=== PATIENT | male | born 2000 | race Hispanic/Latino ===

== ENCOUNTER 2020-08-19 22:41 | Emergency (ER) | payer OTHER ==
--- OUTSIDE RECORDS SUMMARY | 2020-08-19 22:43 | XMS REPORT | Continuity of Care Document ---
:2000 Author Organization [facility] t Address [address] [place] [address] Dr. Villegas [address] [place] [id number] Care Team Providers Name Role Phone Unavailable Unavailable Unavailable Problems This patient has no known problems. Allergies, Adverse Reactions, Alerts This patient has no known allergies or adverse reactions. Medications This patient has no known medications. Procedures This patient has no known procedures. Results This patient has no known results.
[2020-08-19] MEDS ORDERED: LIDOCAINE 1% 20 ML MDV ONE (23:56)
--- NOTE | 2020-08-20 00:24 | EDPHYS ---
Physician Documentation [facility] Name: Luis Fernando Silva Age: 20 yrs Sex: Male : 2000 Arrival Date: 08/19/2020 Time: 22:47 Bed 18 Private MD: ED Physician Jose Marcano HPI: 08/20 00:19 This 20 yrs old Male presents to ER via Ambulatory with complaints of jmm Laceration To Arm. 00:19 The patient has a laceration related to:. Onset: The symptoms/episode began/occurred jmm acutely, just prior to arrival. Associated signs and symptoms: Pertinent positives: laceration. This is a 20 year old male with a history of anxiety that presents to the ED with complaints of laceration to his right arm. patient states he fell through a window cutting his right arm. Patient states he is UTD on immunizations. . Historical: - Allergies: 08/19 23:25 NKA; jb4 - Home Meds: 23:25 none [Active]; jb4 - PMHx: 23:25 Anxiety; Depression; jb4 - PSHx: 23:25 None; jb4 - Immunization history:: Adult Immunizations unknown, Last tetanus immunization: unknown. - Social history:: Smoking status: Patient denies any tobacco usage or history of. Patient/guardian denies using alcohol, street drugs. ROS: 08/20 00:19 Constitutional: Negative for fever, chills, and weight loss, Cardiovascular: Negative jmm for chest pain, palpitations, and edema, Respiratory: Negative for shortness of breath, cough, wheezing, and pleuritic chest pain. Skin: Positive for laceration(s). All other systems are negative. Exam: 00:19 Constitutional: This is a well developed, well nourished patient who is awake, alert, jmm and in no acute distress. Head/Face: atraumatic. Eyes: EOMI, no conjunctival erythema appreciated ENT: Moist Mucus Membranes Neck: Trachea midline, Supple Chest/axilla: Normal chest wall appearance and motion. Cardiovascular: Regular rate and rhythm. No edema appreciated Respiratory: Normal respirations, no respiratory distress appreciated Abdomen/GI: Non distended, soft Back: Normal ROM 00:19 Skin: 6 cm laceration noted to the right proximal forearm. 00:19 Neuro: Orientation: is normal, Mentation: is normal, Memory: is normal. 00:19 Psych: Behavior/mood is pleasant, cooperative. Vital Signs: 08/19 23:15 BP 119 / 85; Pulse 74; Resp 16; Temp 98.4(O); Pulse Ox 98% on R/A; Weight 127.01 kg jb4 (R); Height 5 ft. 9 in. (175.26 cm) (R); Pain 0/10; 08/20 00:40 BP 94 / 62; Pulse 76; Resp 16; Pulse Ox 98% on R/A; jb4 08/19 23:15 Body Mass Index 41.35 (127.01 kg, 175.26 cm) jb4 Laceration: 00:21 Wound Repair of 6cm ( 2.4in ) subcutaneous laceration to right arm. Distal jmm neuro/vascular/tendon intact. Anesthesia: Local anesthetic administered with 10 mls of 1% lidocaine. Wound prep: Moderate cleansing with betadine by me. Skin closed with 10 4-0 Prolene using running sutures. Patient tolerated well. MDM: 08/19 23:30 Patient medically screened. [facility] 08/20 00:22 Data reviewed: vital signs, nurses notes. Counseling: I had a detailed discussion with bello the patient and/or guardian regarding: the historical points, exam findings, and any diagnostic results supporting the discharge/admit diagnosis, the need for outpatient follow up, to return to the emergency department if symptoms worsen or persist or if there are any questions or concerns that arise at home. ED course: Patient given wound infection return precautions. Patient understood and agrees with the plan of care. . 08/20 00:39 Order name: Dressing - Wound; Complete Time: 00:39 jb4 08/20 00:39 Order name: Gloves, Sterile; Complete Time: 00:39 jb4 08/20 00:39 Order name: Setup Suture Tray; Complete Time: 00:39 jb4 Administered Medications: 00:00 Drug: Lidocaine (1 %) 20 ml {Note: Administered by ER provider.} Volume: 20 ml; Route: jb4 Infiltration; 00:41 Follow up: Response: No adverse reaction jb4 Disposition: 06:59 Co-signature as Attending Physician, Jose Marcano MD I agree with the assessment and 4 plan of care. Disposition: 08/20/20 00:23 Discharged to Home. Impression: Forearm Laceration. - Condition is Stable. - Discharge Instructions: Laceration Care, Adult. - Medication Reconciliation Form, Thank You Letter, Antibiotic Education, Prescription Opioid Use form. - Follow up: Private Physician; When: 7 - 10 days; Reason: Recheck today's complaints, Continuance of care, Staple/Suture removal, Re-evaluation by your physician. Signatures: Torsten Linton PA PA jmm Bryson, James, RN RN jb4 Jose Marcano MD MD tw4 Corrections: (The following items were deleted from the chart) 00:41 00:23 08/20/2020 00:23 Discharged to Home. Impression: Forearm Laceration. Condition is jb4 Stable. Forms are Medication Reconciliation Form, Thank You Letter, Antibiotic Education, Prescription Opioid Use. Follow up: Private Physician; When: 7 - 10 days; Reason: Recheck today's complaints, Continuance of care, Staple/Suture removal, Re-evaluation by your physician. redd
--- NOTE | 2020-08-20 00:24 | ER ---
Nurse's Notes [facility] Name: Luis Fernando Silva Age: 20 yrs Sex: Male : 2000 Arrival Date: 08/19/2020 Time: 22:47 Bed 18 Private MD: Diagnosis: Forearm Laceration Presentation: 08/19 23:15 Chief complaint: Patient states: I was taking down my halloween decorations and I fell jb4 through the window and cut my upper right forearm. 23:15 Coronavirus screen: Client denies travel out of the [place] in the last 14 days. At this jb4 time, the client does not indicate any symptoms associated with coronavirus-19. Ebola Screen: No symptoms or risks identified at this time. Complicating Factors: There are no complicating factors for this patient. Initial Sepsis Screen: Does the patient meet any 2 criteria? No. Patient's initial sepsis screen is negative. Does the patient have a suspected source of infection? No. Patient's initial sepsis screen is negative. Risk Assessment: Do you want to hurt yourself or someone else? Patient reports no desire to harm self or others. Onset of symptoms was August 19, 2020. Transition of care: patient was not received from another setting of care. 23:15 Method Of Arrival: Ambulatory jb4 23:15 Acuity: LALIT 4 jb4 Historical: - Allergies: 23:25 NKA; jb4 - Home Meds: 23:25 none [Active]; jb4 - PMHx: 23:25 Anxiety; Depression; jb4 - PSHx: 23:25 None; jb4 - Immunization history:: Adult Immunizations unknown, Last tetanus immunization: unknown. - Social history:: Smoking status: Patient denies any tobacco usage or history of. Patient/guardian denies using alcohol, street drugs. Screenin:25 Abuse screen: Denies threats or abuse. Nutritional screening: No deficits noted. jb4 Tuberculosis screening: No symptoms or risk factors identified. Fall Risk None identified. Assessment: 23:25 General: Appears in no apparent distress. comfortable, Behavior is calm, cooperative, jb4 appropriate for age. Pain: Denies pain. Neuro: Level of Consciousness is awake, alert, obeys commands, Oriented to person, place, time, situation. Cardiovascular: Patient's skin is warm and dry. Respiratory: Airway is patent Respiratory effort is even, unlabored, Respiratory pattern is regular, symmetrical. GI: No signs and/or symptoms were reported involving the gastrointestinal system. : No signs and/or symptoms were reported regarding the genitourinary system. EENT: No signs and/or symptoms were reported regarding the EENT system. Derm: Skin is intact, Skin is pink, warm \T\ dry. Musculoskeletal: Circulation, motion, and sensation intact. Range of motion: intact in all extremities. 23:25 Injury Description: Laceration sustained to dorsal aspect of right forearm is clean, jb4 superficial, 2.6 to 7.5 cm long, small amount of bleeding noted. is bleeding a small amount. 08/20 00:40 Reassessment: Patient appears in no apparent distress at this time. Patient and/or jb4 family updated on plan of care and expected duration. Pain level reassessed. Patient is alert, oriented x 3, equal unlabored respirations, skin warm/dry/pink. Vital Signs: 08/19 23:15 BP 119 / 85; Pulse 74; Resp 16; Temp 98.4(O); Pulse Ox 98% on R/A; Weight 127.01 kg jb4 (R); Height 5 ft. 9 in. (175.26 cm) (R); Pain 0/10; 08/20 00:40 BP 94 / 62; Pulse 76; Resp 16; Pulse Ox 98% on R/A; jb4 08/19 23:15 Body Mass Index 41.35 (127.01 kg, 175.26 cm) jb4 ED Course: 08/19 22:47 Patient arrived in ED. ag3 23:11 Torsten Linton PA is PHCP. jmm 23:11 Jose Marcano MD is Attending Physician. jmm 23:22 Ori Cespedes, ARUN is Primary Nurse. jb4 23:24 Triage completed. jb4 23:25 Arm band placed on right wrist. jb4 23:25 Patient has correct armband on for positive identification. Bed in low position. Call jb4 light in reach. Side rails up X 1. Pulse ox on. NIBP on. 08/20 00:20 Assist provider with laceration repair on dorsal aspect of right forearm that was jb4 between 2.6 to 7.5 cm using sutures. Set up tray. Performed by Torsten GROSSMAN Dressed with PT refused bandage Patient tolerated well. Patient did not have IV access during this emergency room visit. Administered Medications: 00:00 Drug: Lidocaine (1 %) 20 ml {Note: Administered by ER provider.} Volume: 20 ml; Route: jb4 Infiltration; 00:41 Follow up: Response: No adverse reaction jb4 Outcome: 00:23 Discharge ordered by MD. rainey 00:41 Discharged to home ambulatory, with friend. jb4 00:41 Condition: improved 00:41 Discharge instructions given to patient, Instructed on discharge instructions, follow up and referral plans. Demonstrated understanding of instructions, follow-up care. 00:41 Patient left the ED. jb4 Signatures: Torsten Linton PA PA jmm Bryson, James, RN RN jb4 Rosario Feliciano ag3
[2020-08-20 00:59] VITALS: TEMP 98.4; O2SAT 98
[2020-08-20 01:01] VITALS: BP 94/62
== END 2020-08-20 00:41 | disposition home or self-care (01) ==
LOC: ER 22:41
PROC: 0JQG0ZZ Repair Right Lower Arm Subcutaneous Tissue and Fascia, Open Approach (ICD-10-PCS; principal; 2020-08-20)
DX: S51.811A Laceration without foreign body of right forearm, initial encounter (principal); W01.110A Fall on same level from slipping, tripping and stumbling with subsequent striking against sharp glass, initial encounter; Y93.89 Activity, other specified; Y92.9 Unspecified place or not applicable
CPT/HCPCS: 99283

== ENCOUNTER 2020-08-21 18:45 | Emergency (ER) | payer OTHER ==
--- OUTSIDE RECORDS SUMMARY | 2020-08-21 18:47 | XMS REPORT | Continuity of Care Document ---
:2000 Author Organization [facility] t Address [address] [place] [address] Dr. Villegas [address] [place] [id number] Care Team Providers Name Role Phone Unavailable Unavailable Unavailable Problems This patient has no known problems. Allergies, Adverse Reactions, Alerts This patient has no known allergies or adverse reactions. Medications This patient has no known medications. Procedures This patient has no known procedures. Results This patient has no known results.
[2020-08-21] MEDS ORDERED: LIDOCAINE 1% W/EPI 1:100,000 MDV 20 ML VIAL ONE (20:27)
--- NOTE | 2020-08-21 20:51 | EDPHYS ---
Physician Documentation [facility] Name: Luis Fernando Silva Age: 20 yrs Sex: Male : 2000 Arrival Date: 08/21/2020 Time: 18:47 Bed 28 Private MD: ED Physician Jason Henao HPI: 08/21 20:10 This 20 yrs old Male presents to ER via Ambulatory with complaints of Suture cp Recheck. 20:10 Patient presents to ED for recheck of: laceration. cp 20:10 The affected area is on the volar surface right forearm. Previous treatment: The cp patient was initially treated 2 day(s) ago, the care was rendered at [facility], Treatment type: The patient's original treatment included sutures. Patient reports wound now open and suture untied. Historical: - Allergies: 19:31 NKA; ca1 - Home Meds: 19:31 None [Active]; ca1 - PMHx: 19:31 Anxiety; Depression; ca1 - PSHx: 19:31 None; ca1 - Immunization history:: Adult Immunizations up to date, Flu vaccine is not up to date. - Social history:: Smoking status: Patient denies any tobacco usage or history of. ROS: 20:15 Skin: Positive for laceration(s), of the volar surface right forearm. cp 20:15 Constitutional: Negative for fever. cp 20:15 All other systems are negative. Exam: 20:20 Constitutional: The patient appears in no acute distress, alert, awake, well developed, cp well nourished, obese. 20:20 Skin: Wound recheck: Suture laceration closure: no drainage, no erythema, no swelling, noted 1 continuous suture that is untied on lateral side causing laceration to reopen. Vital Signs: 19:28 BP 106 / 50; Pulse 77; Resp 18 S; Temp 97.4(TE); Pulse Ox 98% on R/A; Weight 127.01 kg ca1 (R); Height 5 ft. 9 in. (175.26 cm) (R); Pain 0/10; 19:28 Body Mass Index 41.35 (127.01 kg, 175.26 cm) ca1 Laceration: 20:50 Wound Repair of 6cm ( 2.4in ) subcutaneous laceration to volar surface of right cp forearm. Linear shaped.. Distal neuro/vascular/tendon intact. Anesthesia: Wound infiltrated with 3 mls of 1% lidocaine w/ Epi. Wound prep: Simple cleansing by me, Wound irrigation by me. Skin closed with 2 1-0 Prolene using simple interupted sutures, loose closure. Dressed with Bacitracin, 4x4's, Kerlix. Patient tolerated well. MDM: 20:04 Patient medically screened. cp 20:50 Data reviewed: vital signs, nurses notes, I have discussed the patient's cp presentation/case with the attending Emergency Department Physician; and as a result, I will discharge patient. 20:50 Counseling: I had a detailed discussion with the patient and/or guardian regarding: the cp historical points, exam findings, and any diagnostic results supporting the discharge/admit diagnosis, the need for outpatient follow up, a family practitioner, to return to the emergency department if symptoms worsen or persist or if there are any questions or concerns that arise at home. Response to treatment: the patient's symptoms have markedly improved after treatment, and as a result, I will discharge patient. 08/21 20:08 Order name: Dressing - Wound; Complete Time: 21:00 08/21 20:08 Order name: Gloves, Sterile; Complete Time: 20:16 cp 08/21 20:08 Order name: Setup Suture Tray; Complete Time: 20:16 cp Administered Medications: 20:45 Drug: Lidocaine-Epinephrine -1%: (1:100,000) 5 ml {Note: administered to wound by Nando tl1 Page PA.} Volume: 20 ml; Route: Infiltration; 21:01 Follow up: Response: No adverse reaction; No change in condition tl1 Disposition: 21:00 Chart complete. 08/22 01:50 Co-signature as Attending Physician, Jason Henao MD. rn Disposition: 08/21/20 20:50 Discharged to Home. Impression: Encounter for attention to dressings, sutures and drains. - Condition is Stable. - Discharge Instructions: Sutured Wound Care. - Prescriptions for Keflex 500 mg Oral Capsule - take 1 capsule by ORAL route every 8 hours for 10 days; 30 capsule. - Medication Reconciliation Form, Thank You Letter, Antibiotic Education, Prescription Opioid Use form. - Follow up: Private Physician; When: 1 week; Reason: Staple/Suture removal. - Problem is new. - Symptoms have improved. Signatures: Jason Henao MD MD rn Fouzia Bower RN RN tl1 Nando Orta PA PA cp Pat Bolden RN RN ca1 Corrections: (The following items were deleted from the chart) 08/21 20:52 20:49 Dressing - Wound ordered. cp bb 21:05 20:50 08/21/2020 20:50 Discharged to Home. Impression: Encounter for attention to tl1 dressings, sutures and drains. Condition is Stable. Forms are Medication Reconciliation Form, Thank You Letter, Antibiotic Education, Prescription Opioid Use. Follow up: Private Physician; When: 1 week; Reason: Staple/Suture removal. Problem is new. Symptoms have improved. cp
--- NOTE | 2020-08-21 20:51 | ER ---
Nurse's Notes [facility] Name: Luis Fernando Silva Age: 20 yrs Sex: Male : 2000 Arrival Date: 08/21/2020 Time: 18:47 Bed 28 Private MD: Diagnosis: Encounter for attention to dressings, sutures and drains Presentation: 08/21 19:28 Chief complaint: Patient states: Was here for a laceration on R forearm yesterday. Was ca1 sutured. Woke up this morning, most of the sutures are gone. Wound dehisced, sutures not seen, bleeding noted. Pressure dressing applied. Coronavirus screen: Client denies travel out of the [place] in the last 14 days. At this time, the client does not indicate any symptoms associated with coronavirus-19. Ebola Screen: Patient negative for fever greater than or equal to 101.5 degrees Fahrenheit, and additional compatible Ebola Virus Disease symptoms Patient denies exposure to infectious person. Patient denies travel to an Ebola-affected area in the 21 days before illness onset. No symptoms or risks identified at this time. Initial Sepsis Screen: Does the patient meet any 2 criteria? No. Patient's initial sepsis screen is negative. Does the patient have a suspected source of infection? No. Patient's initial sepsis screen is negative. Risk Assessment: Do you want to hurt yourself or someone else? Patient reports no desire to harm self or others. Onset of symptoms was August 21, 2020. 19:28 Method Of Arrival: Ambulatory ca1 19:28 Acuity: LALIT 4 ca1 Triage Assessment: 21:05 General: Appears in no apparent distress. Behavior is calm, cooperative, appropriate tl1 for age. Pain: Denies pain. Historical: - Allergies: 19:31 NKA; ca1 - Home Meds: 19:31 None [Active]; ca1 - PMHx: 19:31 Anxiety; Depression; ca1 - PSHx: 19:31 None; ca1 - Immunization history:: Adult Immunizations up to date, Flu vaccine is not up to date. - Social history:: Smoking status: Patient denies any tobacco usage or history of. Screenin:05 Abuse screen: Denies threats or abuse. Denies injuries from another. Nutritional tl1 screening: No deficits noted. Tuberculosis screening: No symptoms or risk factors identified. Fall Risk None identified. Vital Signs: 19:28 BP 106 / 50; Pulse 77; Resp 18 S; Temp 97.4(TE); Pulse Ox 98% on R/A; Weight 127.01 kg ca1 (R); Height 5 ft. 9 in. (175.26 cm) (R); Pain 0/10; 19:28 Body Mass Index 41.35 (127.01 kg, 175.26 cm) ca1 ED Course: 18:47 Patient arrived in ED. ds1 19:30 Triage completed. ca1 19:31 Arm band placed on right wrist. ca1 19:51 Nando Orta PA is PHCP. cp 19:51 Jason Henao MD is Attending Physician. cp 20:45 Assist provider with laceration repair on dorsal aspect of right forearm that was tl1 between 2.6 to 7.5 cm using sutures. Set up tray. Performed by Nando GROSSMAN Dressed with 4X4s, Kerlix, Neosporin, Patient tolerated well. 21:02 No provider procedures requiring assistance completed. Patient did not have IV access tl1 during this emergency room visit. Dressings: Kerlix X 1; dorsal aspect of right forearm 4X4s. 21:03 Patient has correct armband on for positive identification. Bed in low position. Call tl1 light in reach. Administered Medications: 20:45 Drug: Lidocaine-Epinephrine -1%: (1:100,000) 5 ml {Note: administered to wound by Nando GROSSMAN.} Volume: 20 ml; Route: Infiltration; 21:01 Follow up: Response: No adverse reaction; No change in condition tl1 Outcome: 20:50 Discharge ordered by . cp 21:04 Discharged to home ambulatory. tl1 21:04 Condition: good 21:04 Discharge instructions given to patient, Instructed on discharge instructions, follow up and referral plans. medication usage, wound care, Demonstrated understanding of instructions, follow-up care, medications, wound care, Prescriptions given X 1. 21:05 Patient left the ED. tl1 Signatures: Joanne Arroyo ds1 Fouzia Bower, RN RN tl1 Nando Orta PA PA cp Acob, Cheryl, RN RN ca1
[2020-08-22 02:23] VITALS: BP 106/50; TEMP 97.4; O2SAT 98
== END 2020-08-21 21:05 | disposition home or self-care (01) ==
LOC: ER 18:45
PROC: 0JQG0ZZ Repair Right Lower Arm Subcutaneous Tissue and Fascia, Open Approach (ICD-10-PCS; principal; 2020-08-21)
DX: S51.811D Laceration without foreign body of right forearm, subsequent encounter (principal)
CPT/HCPCS: 99283

== ENCOUNTER 2020-08-30 22:50 | Emergency (ER) | payer OTHER ==
--- OUTSIDE RECORDS SUMMARY | 2020-08-30 22:51 | XMS REPORT | Continuity of Care Document ---
:2000 Author Organization [facility] t Address [address] [place] [address] Dr. Villegas [address] [place] [id number] Care Team Providers Name Role Phone Unavailable Unavailable Unavailable Problems This patient has no known problems. Allergies, Adverse Reactions, Alerts This patient has no known allergies or adverse reactions. Medications This patient has no known medications. Procedures This patient has no known procedures. Results This patient has no known results.
--- NOTE | 2020-08-30 23:23 | EDPHYS ---
Physician Documentation [facility] Name: Luis Fernando Silva Age: 20 yrs Sex: Male : 2000 Arrival Date: 08/30/2020 Time: 22:54 Bed 28 Private MD: ED Physician Chele Rodriguez HPI: 08/30 23:16 This 20 yrs old Male presents to ER via Ambulatory with complaints of Suture pkl Removal. 23:16 The patient has sutures on the right forearm. Previous treatment: the care was rendered pkl at [facility]. Sutures/autumn progress: The patient has no c/o's. The wound is well-healing with no redness, swelling, discharge, or dehiscence reported. Historical: - Allergies: 23:02 NKA; aj1 - Home Meds: 23:02 None [Active]; aj1 - PMHx: 23:02 Anxiety; Depression; aj1 - Immunization history:: Adult Immunizations up to date. - Social history:: Smoking status: Patient/guardian denies using tobacco. ROS: 23:16 Eyes: Negative for injury, pain, redness, and discharge, ENT: Negative for injury, pkl pain, and discharge, Neck: Negative for injury, pain, and swelling, Cardiovascular: Negative for chest pain, palpitations, and edema, Respiratory: Negative for shortness of breath, cough, wheezing, and pleuritic chest pain, Abdomen/GI: Negative for abdominal pain, nausea, vomiting, diarrhea, and constipation, Back: Negative for injury and pain, : Negative for injury, bleeding, discharge, and swelling, Neuro: Negative for headache, weakness, numbness, tingling, and seizure. 23:16 MS/extremity: Positive for Laceration right forearm healed. Exam: 23:16 Head/Face: Normocephalic, atraumatic. Eyes: Pupils equal round and reactive to light, pkl extra-ocular motions intact. Lids and lashes normal. Conjunctiva and sclera are non-icteric and not injected. Cornea within normal limits. Periorbital areas with no swelling, redness, or edema. ENT: Nares patent. No nasal discharge, no septal abnormalities noted. Tympanic membranes are normal and external auditory canals are clear. Oropharynx with no redness, swelling, or masses, exudates, or evidence of obstruction, uvula midline. Mucous membranes moist. Neck: Trachea midline, no thyromegaly or masses palpated, and no cervical lymphadenopathy. Supple, full range of motion without nuchal rigidity, or vertebral point tenderness. No Meningismus. Chest/axilla: Normal chest wall appearance and motion. Nontender with no deformity. No lesions are appreciated. Cardiovascular: Regular rate and rhythm with a normal S1 and S2. No gallops, murmurs, or rubs. Normal PMI, no JVD. No pulse deficits. Respiratory: Lungs have equal breath sounds bilaterally, clear to auscultation and percussion. No rales, rhonchi or wheezes noted. No increased work of breathing, no retractions or nasal flaring. Abdomen/GI: Soft, non-tender, with normal bowel sounds. No distension or tympany. No guarding or rebound. No evidence of tenderness throughout. Back: No spinal tenderness. No costovertebral tenderness. Full range of motion. Neuro: Awake and alert, GCS 15, oriented to person, place, time, and situation. Cranial nerves II-XII grossly intact. Motor strength 5/5 in all extremities. Sensory grossly intact. Cerebellar exam normal. Normal gait. 23:16 Musculoskeletal/extremity: Extremities: grossly normal except: noted in the right forearm : healed laceration. Vital Signs: 23:00 BP 121 / 68; Pulse 96; Resp 18; Pulse Ox 99% on R/A; Weight 127.01 kg (R); Height 5 ft. aj1 9 in. (175.26 cm) (R); Pain 0/10; 23:00 Body Mass Index 41.35 (127.01 kg, 175.26 cm) aj1 Procedures: 23:16 Performed Sutures removed. pkl MDM: 22:55 Patient medically screened. pkl 23:16 Data reviewed: vital signs, nurses notes. pkl Administered Medications: No medications were administered Disposition: 08/30/20 23:22 Discharged to Home. Impression: Removal of sutures ( right forearm ). - Condition is Stable. - Work release form, Medication Reconciliation Form, Thank You Letter, Antibiotic Education, Prescription Opioid Use form. - Follow up: Private Physician; When: As needed. - Problem is new. - Symptoms have improved. Signatures: Brandy Baker RN RN aj1 Chele Rodriguez MD MD pkl Corrections: (The following items were deleted from the chart) 23:28 23:22 08/30/2020 23:22 Discharged to Home. Impression: Removal of sutures ( right aj1 forearm ). Condition is Stable. Forms are Medication Reconciliation Form, Thank You Letter, Antibiotic Education, Prescription Opioid Use. Follow up: Private Physician; When: As needed. Problem is new. Symptoms have improved. pkl
--- NOTE | 2020-08-30 23:23 | ER ---
Nurse's Notes [facility] Name: Luis Fernando Silva Age: 20 yrs Sex: Male : 2000 Arrival Date: 08/30/2020 Time: 22:54 Bed 28 Private MD: Diagnosis: Removal of sutures ( right forearm ) Presentation: 08/30 23:00 Chief complaint: Patient states: He has sutures put in over a week ago on his right arm aj1 and now he is here to have them removed. Coronavirus screen: Client denies travel out of the [place] in the last 14 days. At this time, the client does not indicate any symptoms associated with coronavirus-19. Ebola Screen: Patient denies travel to an Ebola-affected area in the 21 days before illness onset. Initial Sepsis Screen: Does the patient meet any 2 criteria? No. Patient's initial sepsis screen is negative. Does the patient have a suspected source of infection? No. Patient's initial sepsis screen is negative. Risk Assessment: Do you want to hurt yourself or someone else? Patient reports no desire to harm self or others. Onset of symptoms was August 30, 2020. 23:00 Method Of Arrival: Ambulatory aj1 23:00 Acuity: LALIT 5 aj1 Triage Assessment: 23:02 General: Appears in no apparent distress. comfortable, Behavior is calm, cooperative. aj1 Pain: Denies pain. Historical: - Allergies: 23:02 NKA; aj1 - Home Meds: 23:02 None [Active]; aj1 - PMHx: 23:02 Anxiety; Depression; aj1 - Immunization history:: Adult Immunizations up to date. - Social history:: Smoking status: Patient/guardian denies using tobacco. Screenin:04 Abuse screen: Denies threats or abuse. Denies injuries from another. Nutritional aj1 screening: No deficits noted. Tuberculosis screening: No symptoms or risk factors identified. 23:28 Fall Risk None identified. aj1 Assessment: 23:04 General: Appears in no apparent distress. comfortable, Behavior is calm, cooperative, aj1 appropriate for age. Pain: Denies pain. Neuro: Level of Consciousness is awake, alert, obeys commands, Oriented to person, place, time, situation. Cardiovascular: Patient's skin is warm and dry. Respiratory: Airway is patent Respiratory effort is even, unlabored, Respiratory pattern is regular, symmetrical. GI: No signs and/or symptoms were reported involving the gastrointestinal system. : No signs and/or symptoms were reported regarding the genitourinary system. EENT: No signs and/or symptoms were reported regarding the EENT system. Derm: Skin is pink, warm \T\ dry. normal. Musculoskeletal: Circulation, motion, and sensation intact. Vital Signs: 23:00 BP 121 / 68; Pulse 96; Resp 18; Pulse Ox 99% on R/A; Weight 127.01 kg (R); Height 5 ft. aj1 9 in. (175.26 cm) (R); Pain 0/10; 23:00 Body Mass Index 41.35 (127.01 kg, 175.26 cm) aj1 ED Course: 22:54 Patient arrived in ED. am2 22:55 Chele Rodriguez MD is Attending Physician. pkl 22:55 Brandy Baker RN is Primary Nurse. aj1 23:01 Triage completed. aj1 23:02 Arm band placed on. aj1 23:04 Patient has correct armband on for positive identification. Bed in low position. Call aj1 light in reach. 23:04 No provider procedures requiring assistance completed. aj1 23:27 Patient did not have IV access during this emergency room visit. aj1 Administered Medications: No medications were administered Outcome: 23:22 Discharge ordered by . pk 23:28 Discharged to home ambulatory. aj1 23:28 Condition: good 23:28 Discharge instructions given to patient, Instructed on discharge instructions, follow up and referral plans. Demonstrated understanding of instructions, follow-up care. 23:28 Patient left the ED. aj1 Signatures: Brandy Baker RN RN aj Chele Rodriguez MD MD pkAminta Gallego amTiffanie
[2020-08-31 18:07] VITALS: BP 121/68; O2SAT 99
== END 2020-08-30 23:28 | disposition home or self-care (01) ==
LOC: ER 22:50
DX: Z48.02 Encounter for removal of sutures (principal)
CPT/HCPCS: 99281

== ENCOUNTER 2020-11-18 12:24 | Emergency (ER) | payer OTHER ==
--- OUTSIDE RECORDS SUMMARY | 2020-11-18 12:25 | XMS REPORT | Continuity of Care Document ---
:2000 Author Organization [facility] t Address [address] [place] [address] Dr. Villegas [address] [place] [id number] Care Team Providers Name Role Phone Unavailable Unavailable Unavailable Problems This patient has no known problems. Allergies, Adverse Reactions, Alerts This patient has no known allergies or adverse reactions. Medications This patient has no known medications. Procedures This patient has no known procedures. Results This patient has no known results.
[2020-11-18] MEDS ORDERED: LIDOCAINE 2% MPF 5 ML VIAL ONE (13:05)
[2020-11-18] MEDS ORDERED: BUPIVACAINE 0.5% PF 10 ML VIAL ONE (13:06)
[2020-11-18] MEDS ORDERED: TETANUS & DIPHTHERIA TOX,ADULT 0.5 ML VIAL ONE (13:06)
[2020-11-18 13:09] LABS: Absolute Lymphocytes (CBC) 2.7 K/uL (0.7-4.9); Basophils % 0.5 % (0-1.3); Hematocrit 42.5 % (39.6-49.0); Lymphocytes % 27.6 % (15.3-44.8); MPV 9.5 fL (7.6-11.3); RBC Red Blood Cell Count 4.96 M/uL (4.33-5.43)
[2020-11-18 13:28] LABS: Protime INR 1.09
[2020-11-18 13:32] LABS: ALT/SGPT 42 U/L (12-78); AST/SGOT 35 U/L (15-37); Albumin 3.9 g/dL (3.4-5.0); Alkaline Phosphatase 98 U/L (45-117); BUN Blood Urea Nitrogen 6 mg/dL (7-18); Bicarbonate 28 mmol/L (21-32); Bilirubin Direct 0.1 mg/dL (0-0.2); Bilirubin Total 0.3 mg/dL (0.2-1.0); Glucose Level 116 mg/dL (74-106); Potassium 3.4 mmol/L (3.5-5.1); Protein, Total 8.9 g/dL (6.4-8.2); Sodium Level 142 mmol/L (136-145)
[2020-11-18 13:36] LABS: Urine Blood NEGATIVE (NEG); Urine Glucose NEGATIVE (NEG); Urine Protein NEGATIVE (NEG); Urine Specific Gravity >1.030 (1.005-1.030); Urine pH 5.5 (5.0-7.0)
[2020-11-18 13:39] LABS: Barbiturates NEGATIVE (NEGATIVE); Benzodiazepines NEGATIVE (NEGATIVE); Cocaine NEGATIVE (NEGATIVE); METHAMPHETAM NEGATIVE (NEGATIVE); Methadone NEGATIVE (NEGATIVE); Opiates NEGATIVE (NEGATIVE); Phencyclidine NEGATIVE (NEGATIVE); THC Cannibis NEGATIVE (NEGATIVE)
--- NOTE | 2020-11-18 13:57 | RAD REPORT ---
EXAM DESCRIPTION: RAD - Forearm Left - 11/18/2020 1:48 pm CLINICAL HISTORY: laceration Pain and swelling COMPARISON: No comparisons FINDINGS: No bone or joint abnormality is detected.
[2020-11-18] MEDS ORDERED: LIDOCAINE 1% MPF 5 ML VIAL ONE (13:59)
--- NOTE | 2020-11-18 19:56 | ER ---
Nurse's Notes [facility] Name: Luis Fernando Silva Age: 20 yrs Sex: Male : 2000 Arrival Date: 11/18/2020 Time: 12:24 Bed 5 Private MD: Diagnosis: Laceration without foreign body of left forearm;Suicidal gesture Presentation: 11/18 12:48 Chief complaint: Patient states: "At about 4 am I was having a tough time and I was jd3 just having a mental breakdown and I cut myself with a piece of glass. I didn't want to commit suicide, that is just how dealt with the problem at the time. I haven't cut in a long time, I was just having a real tough time.". 12:54 Coronavirus screen: At this time, the client does not indicate any symptoms associated jd3 with coronavirus-19. Ebola Screen: Patient negative for fever greater than or equal to 101.5 degrees Fahrenheit, and additional compatible Ebola Virus Disease symptoms. Complicating Factors: There are no complicating factors for this patient. Initial Sepsis Screen: Does the patient meet any 2 criteria? No. Patient's initial sepsis screen is negative. Does the patient have a suspected source of infection? No. Patient's initial sepsis screen is negative. Risk Assessment: Do you want to hurt yourself or someone else? Patient reports no desire to harm self or others. Onset of symptoms was November 18, 2020. 12:54 Method Of Arrival: Ambulatory jd3 12:54 Acuity: LALIT 2 jd3 Triage Assessment: 12:35 General: Appears in no apparent distress. uncomfortable, Behavior is calm, cooperative, jl7 flat. Pain: Complains of pain in palmar aspect of left forearm Pain currently is 5 out of 10 on a pain scale. Neuro: Level of Consciousness is awake, alert, obeys commands, Oriented to person, place, time, situation. Cardiovascular: Patient's skin is warm and dry. Respiratory: Airway is patent Respiratory effort is even, unlabored, Respiratory pattern is regular, symmetrical. Derm: Skin is pink, warm \\T\\ dry. Injury Description: Laceration sustained to palmar aspect of left forearm is 7.6 to 20 cm long, CMS intact, appears to be about 1 cm deep, adipose tissue noted, no bleeding was sustained 6-12 hours ago. is bleeding no active bleeding noted. Historical: - Allergies: 12:57 No Known Drug Allergies; jd3 - Home Meds: 12:57 anxiety med [Active]; depression med [Active]; jd3 - PMHx: 12:57 Anxiety; Depression; jd3 - PSHx: 12:57 None; jd3 - Immunization history:: Adult Immunizations up to date. - Social history:: Smoking status: Patient denies any tobacco usage or history of. Patient/guardian denies using alcohol, street drugs. Screenin:45 Abuse screen: Denies threats or abuse. Denies injuries from another. Nutritional jl7 screening: No deficits noted. Tuberculosis screening: No symptoms or risk factors identified. Fall Risk IV access (20 points). Assessment: 12:35 General: See triage assessment. jl7 12:45 Reassessment: Pt states "I wasn't trying to kill myself. I was just having a mental jl7 breakdown and this is how I was trying to deal with the pain." Multiple scars to bilateral forearms noted. 14:00 Reassessment: Patient appears in no apparent distress at this time. No changes from jl7 previously documented assessment. Patient and/or family updated on plan of care and expected duration. Pain level reassessed. Patient is alert, oriented x 3, equal unlabored respirations, skin warm/dry/pink. 15:00 Reassessment: Patient appears in no apparent distress at this time. No changes from jl7 previously documented assessment. Patient and/or family updated on plan of care and expected duration. Pain level reassessed. Patient is alert, oriented x 3, equal unlabored respirations, skin warm/dry/pink. 16:00 Reassessment: Patient appears in no apparent distress at this time. No changes from jl7 previously documented assessment. Patient and/or family updated on plan of care and expected duration. Pain level reassessed. Patient is alert, oriented x 3, equal unlabored respirations, skin warm/dry/pink. 17:00 Reassessment: Patient appears in no apparent distress at this time. No changes from jl7 previously documented assessment. Patient and/or family updated on plan of care and expected duration. Pain level reassessed. Patient is alert, oriented x 3, equal unlabored respirations, skin warm/dry/pink. 18:00 Reassessment: Patient appears in no apparent distress at this time. No changes from jl7 previously documented assessment. Patient and/or family updated on plan of care and expected duration. Pain level reassessed. Patient is alert, oriented x 3, equal unlabored respirations, skin warm/dry/pink. 19:50 Reassessment: REPORT GIVEN TO TOÑO KAPLAN. rv Vital Signs: 12:57 BP 121 / 60; Pulse 89; Resp 16 S; Temp 99.2(TE); Pulse Ox 100% on R/A; Weight 127.01 kg jd3 (R); Height 5 ft. 11 in. (180.34 cm) (R); Pain 5/10; 14:28 Pulse 93; Resp 15 S; Pulse Ox 99% on R/A; jd3 12:57 Body Mass Index 39.05 (127.01 kg, 180.34 cm) jd3 ED Course: 12:24 Patient arrived in ED. ag5 12:35 Markie Ramirez, ARUN is Primary Nurse. jl7 12:37 Jessee Brooks NP is PHCP. pm1 12:37 Jason Henao MD is Attending Physician. pm1 12:45 Patient has correct armband on for positive identification. Bed in low position. Call jl7 light in reach. Side rails up X 1. Pulse ox on. NIBP on. 12:55 Triage completed. jd3 12:57 Arm band placed on. jd3 13:00 Initial lab(s) drawn, by ED staff, sent to lab. Inserted saline lock: 20 gauge in right jl7 antecubital area, using aseptic technique. Blood collected. 13:48 Forearm Left XRAY In Process Unspecified. EDMS 14:24 Assist provider with laceration repair on palmar aspect of left forearm that was jd3 between 12.6 to 20 cm using sutures. Set up tray. Performed by Jessee Brooks WIRELINE SUPERVISOR Dressed with 4X4s, Patient tolerated well. 15:00 [facility] called to arrange for a screener to talk to this patient. em1 15:00 Acetaminophen Sent. jl7 15:00 Basic Metabolic Panel Sent. jl7 15:00 CBC with Diff Sent. jl7 15:44 [facility] calls to notify us that the screener is currently on a call with a em1 patient at a different facility and will contact us when they are done. 19:16 Fax[facility] pt chart to [facility], [facility], [facility] of [address] and [facility] between the times of 1915 and 1917. 19:38 Lanie with [facility] called and stated they have pending discharges and could tt3 take the pt after 10am. Asked if there was a change for us to call and update them. 19:41 Maggie with [facility] called to do Nurse to Nurse. Call was transferred to tt3 Primary Nurse. Administered Medications: 13:05 Drug: Tetanus-Diphtheria Toxoid Adult 0.5 ml {Abstract Maker: [employer]. Exp: jl7 01/26/2022. Lot #: [id number]. } Route: IM; Site: right deltoid; 13:25 Follow up: Response: No adverse reaction jl7 14:20 Drug: Lidocaine (1 %) 5 ml {Note: Administered by ERP.} Volume: 5 ml; Route: jl7 Infiltration; 14:59 Follow up: Response: No adverse reaction jl7 14:20 Drug: Bupivacaine (0.5 %) 10 ml {Note: administered by ERP.} Volume: 10 ml; Route: jl7 Infiltration; 15:00 Follow up: Response: No adverse reaction jl7 20:20 Drug: Ancef 1 grams Route: IVPB; Site: right forearm; rv Outcome: 19:55 ER care complete, transfer ordered by . pm1 23:32 Patient left the ED. lp1 Signatures: Dispatcher [employer] EDAdi Nunes em1 Mayra Carlos RN RN lp1 Jessee Brooks NP WIRELINE SUPERVISOR pm1 Markie Ramirez RN RN jl7 Marcus Faulkner RN RN jd3 Gregory Perrin RN RN rv Gaskin, Ajare ag5 Trim, Tyler tt3 Corrections: (The following items were deleted from the chart) 12:55 12:48 Chief complaint: Patient states: "At about 4 am I was having a tough time and I jd3 was just having a mental breakdown and I cut myself with a piece of glass. I didn't want to commit suicide, that is just how dealt with the problem at the time. I haven't cut in a long time, I was just having a real tough time." jd3
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
[2020-11-18] MEDS ORDERED: CEFAZOLIN/SWI 1gm 1 GM/10 ML SYR ONE (20:32)
[2020-11-18 23:38] VITALS: BP 121/60; TEMP 99.2
[2020-11-18 23:39] VITALS: O2SAT 99
== END 2020-11-18 23:32 ==
LOC: ER 12:24
PROC: 0JQH0ZZ Repair Left Lower Arm Subcutaneous Tissue and Fascia, Open Approach (ICD-10-PCS; principal; 2020-11-18)
DX: S51.812A Laceration without foreign body of left forearm, initial encounter (principal); X78.0XXA Intentional self-harm by sharp glass, initial encounter; Y93.89 Activity, other specified; Y92.009 Unspecified place in unspecified non-institutional (private) residence as the place of occurrence of the external cause; Z20.822 Contact with and (suspected) exposure to COVID-19; Z23 Encounter for immunization; F41.8 Other specified anxiety disorders
CPT/HCPCS: 93005; 85025; 80048; 36415; 80320; 80329 ×2; 85610; 80076; 80307 ×8; 85730; 81003; 73090; 90471; 90714; 96374; 99284; 12005; U0003; J0690

== ENCOUNTER 2020-11-30 07:32 | Emergency (ER) | payer OTHER ==
--- NOTE | 2020-11-30 08:44 | ER ---
Nurse's Notes [facility] Name: Luis Fernando Silva Age: 20 yrs Sex: Male : 2000 Arrival Date: 11/30/2020 Time: 07:34 Bed 18 Private MD: Diagnosis: Wound check;Encounter for removal of sutures Presentation: 11/30 07:47 Chief complaint: Patient states: needs sutures removed from left wrist/forearm , was iw seen here on 11-19-20 for suicidal gesture, was transferred to [facility] facility and released a couple days ago , also is feeling some sharp pain in wrist area. Coronavirus screen: At this time, the client does not indicate any symptoms associated with coronavirus-19. Ebola Screen: Patient negative for fever greater than or equal to 101.5 degrees Fahrenheit, and additional compatible Ebola Virus Disease symptoms Patient denies exposure to infectious person. Patient denies travel to an Ebola-affected area in the 21 days before illness onset. No symptoms or risks identified at this time. Initial Sepsis Screen: Does the patient meet any 2 criteria? No. Patient's initial sepsis screen is negative. Does the patient have a suspected source of infection? No. Patient's initial sepsis screen is negative. Risk Assessment: Do you want to hurt yourself or someone else? Patient reports no desire to harm self or others. Onset of symptoms was November 19, 2020. 07:47 Method Of Arrival: Ambulatory iw 07:47 Acuity: LALIT 4 iw Historical: - Allergies: 07:50 No Known Allergies; iw - PMHx: 07:50 Anxiety; Depression; iw - PSHx: 07:50 None; iw - Immunization history:: Adult Immunizations up to date. Screenin:40 Abuse screen: Denies threats or abuse. Denies injuries from another. Nutritional iw screening: No deficits noted. Tuberculosis screening: No symptoms or risk factors identified. Fall Risk None identified. Assessment: 08:39 General: Appears in no apparent distress. Behavior is calm, cooperative. Pain: Denies iw pain. Neuro: Level of Consciousness is awake, alert, obeys commands, Oriented to person, place, time, situation, Moves all extremities. Full function. Cardiovascular: Patient's skin is warm and dry. Respiratory: Respiratory effort is even, unlabored, Respiratory pattern is regular, symmetrical. Derm: Skin is healthy with good turgor. Injury Description: Laceration sustained to palmar aspect of left forearm is 10 sutures removed, steri-strips placed,no s/s of infection. Vital Signs: 08:35 Pulse 74; Resp 16 S; Pulse Ox 98% on R/A; iw ED Course: 07:34 Patient arrived in ED. ag5 07:43 Elin Granger, RN is Primary Nurse. iw 07:46 Barney Qureshi MD is Attending Physician. kdr 07:49 Triage completed. iw 07:49 Arm band placed on. iw Administered Medications: No medications were administered Outcome: 08:44 Discharge ordered by . kdr 08:59 Patient left the ED. iw Signatures: Barney Qureshi MD MD kdr Elin Granger, RN RN iw Philomena Curran ag5
--- NOTE | 2020-11-30 08:44 | EDPHYS ---
Physician Documentation [facility] Name: Luis Fernando Silva Age: 20 yrs Sex: Male : 2000 Arrival Date: 11/30/2020 Time: 07:34 Bed 18 Private MD: ED Physician Barney Qureshi HPI: 11/30 08:45 This 20 yrs old Male presents to ER via Ambulatory with complaints of Suture kdr Removal. 08:45 The patient has sutures on the palmar aspect of left forearm. Previous treatment: The kdr patient was initially treated 10 day(s) ago, the care was rendered at [facility], Treatment type: The patient's original treatment included sutures. Sutures/autumn progress: The patient has no c/o's. The wound is well-healing with no redness, swelling, discharge, or dehiscence reported. The patient has not experienced similar symptoms in the past. The patient has not recently seen a physician. Historical: - Allergies: 07:50 No Known Allergies; iw - PMHx: 07:50 Anxiety; Depression; iw - PSHx: 07:50 None; iw - Immunization history:: Adult Immunizations up to date. ROS: 08:45 Constitutional: Negative for fever, chills, and weight loss, Eyes: Negative for injury, kdr pain, redness, and discharge, Neck: Negative for injury, pain, and swelling. 08:45 Skin: Positive for laceration(s), of the palmar aspect of left forearm. Exam: 08:45 Constitutional: This is a well developed, well nourished patient who is awake, alert, kdr and in no acute distress. 08:45 Skin: injury, laceration(s), the wound is approximately 8 cm(s). 08:45 Skin: Wound recheck: Suture laceration closure: the wound is healing well, the edges are well approximated, no evidence of dehiscence, no drainage, no erythema, no swelling. Vital Signs: 08:35 Pulse 74; Resp 16 S; Pulse Ox 98% on R/A; iw MDM: 08:44 Patient medically screened. kdr 08:49 Data reviewed: vital signs, nurses notes. Counseling: I had a detailed discussion with kdr the patient and/or guardian regarding: the historical points, exam findings, and any diagnostic results supporting the discharge/admit diagnosis, the need for outpatient follow up. 11/30 07:54 Order name: Suture Removal: Replace with Steri-strips; Complete Time: 08:26 kdr Administered Medications: No medications were administered Disposition: 11/30/20 08:44 Discharged to Home. Impression: Wound check, Encounter for removal of sutures. - Condition is Stable. - Discharge Instructions: Stitches, Parshall, or Adhesive Wound Closure, Suture Removal, Care After, Incision Care, Adult. - Medication Reconciliation Form, Thank You Letter, Work release form form. - Follow up: Private Physician; When: 2 - 3 days; Reason: If symptoms return, Further diagnostic work-up, Recheck today's complaints, Continuance of care, Re-evaluation by your physician. - Problem is an ongoing problem. - Symptoms have improved. Signatures: Barney Qureshi MD MD kdr Elin Granger RN RN iw Corrections: (The following items were deleted from the chart) 08:59 08:44 11/30/2020 08:44 Discharged to Home. Impression: Wound check; Encounter for iw removal of sutures. Condition is Stable. Forms are Medication Reconciliation Form, Thank You Letter, Antibiotic Education, Prescription Opioid Use. Follow up: Private Physician; When: 2 - 3 days; Reason: If symptoms return, Further diagnostic work-up, Recheck today's complaints, Continuance of care, Re-evaluation by your physician. Problem is an ongoing problem. Symptoms have improved. kdr
[2020-11-30 09:06] VITALS: O2SAT 98
== END 2020-11-30 08:59 | disposition home or self-care (01) ==
LOC: ER 07:32
DX: Z48.02 Encounter for removal of sutures (principal)
CPT/HCPCS: 99281

== ENCOUNTER 2021-05-12 13:04 | Emergency (ER) | payer OTHER ==
--- OUTSIDE RECORDS SUMMARY | 2021-05-12 13:08 | XMS REPORT | Continuity of Care Document ---
:2000 Author Organization [facility] t Address [address] [place] [address] Care Team Providers Name Role Phone Reid CLEMONS, Robert Attending Clinician Lab, [facility] Pob I Attending Clinician Unavailable Problems This patient has no known problems. Allergies, Adverse Reactions, Alerts This patient has no known allergies or adverse reactions. Medications This patient has no known medications. Procedures This patient has no known procedures. Encounters Start End Encounter Admission Attending Care Care Encounter Source Date/Time Date/Time Type Type Clinicians Facility Department ID 2020-12-12 2020-12-12 [id number] 00:00:00 00:00:00 [facility] [id number] [facility] [id number] Professio [phone] nal 044 [address] One 2020-12-10 2020-12-10 [facility], [facility] [id number] 15:06:40 15:26:40 [facility] [id number] [facility] [id number] Professio [phone] nal 044 Office [address] One 2020-12-10 2020-12-10 [facility] [id number] 14:36:00 15:06:00 Visit [facility] [id number] [facility] [id number] Professio [phone] nal 044 [address] One Results This patient has no known results.
[2021-05-12] MEDS ORDERED: NA CHLORIDE 0.9% 1,000 ML ONE (20:43)
[2021-05-12 21:17] LABS: Basophils % 0.4 % (0-1.3); Hematocrit 44.9 % (39.6-49.0); Lymphocytes % 18.3 % (15.3-44.8); MPV 9.5 fL (7.6-11.3); RBC Red Blood Cell Count 5.12 M/uL (4.33-5.43)
[2021-05-12 21:29] LABS: BUN Blood Urea Nitrogen 15 mg/dL (7-18); Bicarbonate 28 mmol/L (21-32); Glucose Level 77 mg/dL (74-106); Potassium 3.6 mmol/L (3.5-5.1); Sodium Level 139 mmol/L (136-145)
[2021-05-12 21:59] LABS: Urine Blood Negative (Negative); Urine Glucose Negative (Negative); Urine Protein 1+ (Negative); Urine Specific Gravity >=1.030 (1.005-1.030)
[2021-05-12 22:40] LABS: Barbiturates NEGATIVE (NEGATIVE); Benzodiazepines NEGATIVE (NEGATIVE); Cocaine POSITIVE (NEGATIVE); METHAMPHETAM POSITIVE (NEGATIVE); Methadone NEGATIVE (NEGATIVE); Opiates NEGATIVE (NEGATIVE); Phencyclidine NEGATIVE (NEGATIVE); THC Cannibis POSITIVE (NEGATIVE)
--- NOTE | 2021-05-12 23:00 | ER ---
Nurse's Notes [facility] Name: Luis Fernando Silva Age: 21 yrs Sex: Male : 2000 Arrival Date: 05/12/2021 Time: 13:08 Bed 23 Private MD: Diagnosis: Drug Abuse Presentation: 05/12 14:00 Chief complaint: Patient states: Dizziness since midnight while at work. + dry mouth ll1 and lips. No cough or fever. No N/V/D. Coronavirus screen: Client denies travel out of the [place] in the last 14 days. At this time, the client does not indicate any symptoms associated with coronavirus-19. Ebola Screen: Patient denies travel to an Ebola-affected area in the 21 days before illness onset. Initial Sepsis Screen: Does the patient meet any 2 criteria? HR > 90 bpm. No. Patient's initial sepsis screen is negative. Does the patient have a suspected source of infection? No. Patient's initial sepsis screen is negative. Risk Assessment: Do you want to hurt yourself or someone else? Patient reports no desire to harm self or others. Onset of symptoms was May 12, 2021. 14:00 Method Of Arrival: Ambulatory ll1 14:00 Acuity: LALIT 3 ll1 Historical: - Allergies: 14:02 No Known Allergies; ll1 - PMHx: 14:02 Anxiety; Depression; ll1 - PSHx: 14:02 None; ll1 - Immunization history:: Client reports having NOT received the Covid vaccine. Flu vaccine is up to date. - Social history:: Smoking status: Patient denies any tobacco usage or history of. Screenin:00 Abuse screen: Denies threats or abuse. Nutritional screening: No deficits noted. bb Tuberculosis screening: No symptoms or risk factors identified. Fall Risk None identified. Assessment: 20:00 General: Appears in no apparent distress. Behavior is calm, cooperative. Pain: Denies bb pain. Neuro: Level of Consciousness is awake, alert, obeys commands, Oriented to person, place, time, situation. Cardiovascular: Capillary refill < 3 seconds Patient's skin is warm and dry. Respiratory: Airway is patent Respiratory effort is even, unlabored, Respiratory pattern is regular. GI: No deficits noted. Derm: Skin is pink, warm \T\ dry. Musculoskeletal: Circulation, motion, and sensation intact. 22:30 Reassessment: Patient is alert, oriented x 3, equal unlabored respirations, skin bb warm/dry/pink. pt resting quietly, awaiting diagnostic results. 23:08 Reassessment: Patient is alert, oriented x 3, equal unlabored respirations, skin bb warm/dry/pink. pt verbalized understanding of and agrees to plan of care discharge instructions given pt ambulated with steady gait to exit. Vital Signs: 14:00 BP 111 / 67; Pulse 107; Resp 17; Temp 97.8; Pulse Ox 97% ; Weight 113.4 kg; Height 5 ll1 ft. 10 in. (177.80 cm); Pain 0/10; 20:00 BP 116 / 63; Pulse 67; Resp 16 S; Pulse Ox 94% on R/A; bb 22:00 BP 96 / 55; Pulse 77; Resp 17 S; Pulse Ox 97% on R/A; bb 23:09 BP 114 / 69; Pulse 93; Resp 16 S; Temp 98.2(O); Pulse Ox 100% on R/A; bb 14:00 Body Mass Index 35.87 (113.40 kg, 177.80 cm) ll1 ED Course: 13:08 Patient arrived in ED. ds1 14:02 Triage completed. ll1 14:03 Arm band placed on. ll1 19:14 Torsten Linton PA is PHCP. [facility] 19:14 Jason Henao MD is Attending Physician. [facility] 20:00 Patient has correct armband on for positive identification. Bed in low position. Call bb light in reach. Side rails up X 1. 20:00 Initial lab(s) drawn, by me, sent to lab. Inserted saline lock: 20 gauge in right mw antecubital area, using aseptic technique. Blood collected. 20:10 IV discontinued, intact, bleeding controlled, No redness/swelling at site. Pressure bb dressing applied. 20:18 Shereen Raines RN is Primary Nurse. zb 20:48 Primary Nurse role handed off by Shereen Raines RN bb 20:48 Lizeth Tate RN is Primary Nurse. bb 23:10 No provider procedures requiring assistance completed. bb Administered Medications: 20:46 Drug: NS 0.9% 1000 ml Route: IV; Rate: 1 bolus; Site: right antecubital; mw 20:55 Follow up: IV Status: IV infiltrated bb Outcome: 22:59 Discharge ordered by MD. rainey 23:10 Discharged to home ambulatory. bb 23:10 Condition: stable 23:10 Discharge instructions given to patient, Instructed on discharge instructions, follow up and referral plans. Demonstrated understanding of instructions, follow-up care. 23:10 Patient left the ED. bb Signatures: Liz Kincaid RN RN Torsten Linton PA PA jmm Sanford, Demi ds1 Lizeth Tate RN RN bb Chuck Vu RN RN ll1 Shereen Raines RN RN zb Corrections: (The following items were deleted from the chart) 23:09 23:08 Reassessment: Patient is alert, oriented x 3, equal unlabored respirations, skin bb warm/dry/pink. bb
--- NOTE | 2021-05-12 23:00 | EDPHYS ---
Physician Documentation [facility] Name: Luis Fernando Silva Age: 21 yrs Sex: Male : 2000 Arrival Date: 05/12/2021 Time: 13:08 Bed 23 Private MD: ED Physician Jason Henao HPI: 05/12 19:52 This 21 yrs old Male presents to ER via Ambulatory with complaints of jmm Dizziness, Dry Mouth. 19:52 The patient presents with feeling faint, lightheadedness. Onset: The symptoms/episode jmm began/occurred gradually. Modifying factors: The symptoms are alleviated by nothing, the symptoms are aggravated by nothing. Associated signs and symptoms: Pertinent positives: blurred vision. This is a 21-year-old male with a history of anxiety than depression that presents emerge department with complaints of dry mouth, dizziness, lightheadedness, blurred vision beginning earlier today. Denies vomiting or diarrhea.. Historical: - Allergies: 14:02 No Known Allergies; ll1 - PMHx: 14:02 Anxiety; Depression; ll1 - PSHx: 14:02 None; ll1 - Immunization history:: Client reports having NOT received the Covid vaccine. Flu vaccine is up to date. - Social history:: Smoking status: Patient denies any tobacco usage or history of. ROS: 19:52 Constitutional: Negative for fever, chills, and weight loss, Cardiovascular: Negative jmm for chest pain, palpitations, and edema, Respiratory: Negative for shortness of breath, cough, wheezing, and pleuritic chest pain. 19:52 Neuro: Positive for dizziness, near syncope. 19:52 All other systems are negative. Exam: 19:52 Constitutional: This is a well developed, well nourished patient who is awake, alert, jmm and in no acute distress. Head/Face: atraumatic. Eyes: EOMI, no conjunctival erythema appreciated ENT: Moist Mucus Membranes Neck: Trachea midline, Supple Chest/axilla: Normal chest wall appearance and motion. Cardiovascular: Regular rate and rhythm. No edema appreciated Respiratory: Normal respirations, no respiratory distress appreciated Abdomen/GI: Non distended, soft Back: Normal ROM Skin: General appearance color normal MS/ Extremity: Moves all extremities, no obvious deformities appreciated, no edema noted to the lower extremities Neuro: Awake and alert, normal gait Psych: Behavior is normal, Mood is normal, Patient is cooperative and pleasant Vital Signs: 14:00 BP 111 / 67; Pulse 107; Resp 17; Temp 97.8; Pulse Ox 97% ; Weight 113.4 kg; Height 5 ll1 ft. 10 in. (177.80 cm); Pain 0/10; 20:00 BP 116 / 63; Pulse 67; Resp 16 S; Pulse Ox 94% on R/A; bb 22:00 BP 96 / 55; Pulse 77; Resp 17 S; Pulse Ox 97% on R/A; bb 23:09 BP 114 / 69; Pulse 93; Resp 16 S; Temp 98.2(O); Pulse Ox 100% on R/A; bb 14:00 Body Mass Index 35.87 (113.40 kg, 177.80 cm) ll1 MDM: 19:52 Patient medically screened. [facility] 22:58 Data reviewed: vital signs, nurses notes. Counseling: I had a detailed discussion with redd the patient and/or guardian regarding: the historical points, exam findings, and any diagnostic results supporting the discharge/admit diagnosis, lab results, the need for outpatient follow up, to return to the emergency department if symptoms worsen or persist or if there are any questions or concerns that arise at home. 22:58 ED course: Patient is alert nontoxic in appearance in the ED urine drug screen can yanet concerning for polysubstance abuse. I discussed this with the patient along with the need for cessation. Patient was otherwise given strict return precautions. Patient understood and agrees plan of care.. 05/12 19:53 Order name: CBC with Diff; Complete Time: 21:24 [facility] 05/12 19:53 Order name: BMP; Complete Time: 21:34 [facility] 05/12 19:53 Order name: EKG - Nurse/Tech; Complete Time: 22:12 [facility] 05/12 19:53 Order name: Urine Drug Screen; Complete Time: 22:43 [facility] 05/12 21:59 Order name: Urine Dipstick-Ancillary; Complete Time: 22:18 [facility] 05/12 19:53 Order name: Urine Dipstick-Ancillary (obtain specimen); Complete Time: 22:19 [facility] 05/12 19:53 Order name: Saline Lock; Complete Time: 20:44 [facility] Administered Medications: 20:46 Drug: NS 0.9% 1000 ml Route: IV; Rate: 1 bolus; Site: right antecubital; mw 20:55 Follow up: IV Status: IV infiltrated bb Disposition Summary: 05/12/21 22:59 Discharge Ordered Location: Home yanet Condition: Stable jmm Diagnosis - Drug Abuse jmm Followup: jmm - With: Private Physician - When: 2 - 3 days - Reason: Recheck today's complaints, Continuance of care, Re-evaluation by your physician Discharge Instructions: - Discharge Summary Sheet jmm - Cocaine Use Disorder jmm - Methamphetamines Use Disorder jmm - Preventing Marijuana Misuse jm Forms: - Medication Reconciliation Form jmm - Work release form jmm - Thank You Letter jmm - Antibiotic Education jmm - Prescription Opioid Use [facility] Signatures: Dispatcher [employer] Liz Nicole RN RN Torsten Linton PA PA jmm Lewis, Lynsay, RN RN ll1 Lizeth Tate RN bb
[2021-05-12 23:53] VITALS: BP 114/69; O2SAT 100
[2021-05-13 00:44] VITALS: TEMP 98.4
== END 2021-05-12 23:10 | disposition home or self-care (01) ==
LOC: ER 13:04
DX: R55 Syncope and collapse (principal); F19.10 Other psychoactive substance abuse, uncomplicated
CPT/HCPCS: 93005; 85025; 80048; 36415; 81003; 80307; J7030; 99284

== ENCOUNTER 2021-09-02 01:39 | Emergency (ER) | payer OTHER ==
--- OUTSIDE RECORDS SUMMARY | 2021-09-02 01:43 | XMS REPORT | Continuity of Care Document ---
:2000 Author Organization [facility] t Address [address] [place] [address] Care Team Providers Name Role Phone Karoline CLEMONS, Theodora Attending Clinician Doctor Unassigned, Name Attending Clinician Unavailable Robert Mathews MD Attending Clinician Lab, Fam Pob I Attending Clinician Unavailable ROBERT MATHEWS Attending Clinician Unavailable Payers Payer Name Policy Type Policy Number Effective Date Expiration Date [place] [employer] [id number] 2017 HEALTH 00:00:00 [facility] [id number] 2021 00:00:00 Problems Condition Condition Condition Status Onset Resolution Last Treating Co mments Source Name Details Category Date Date Treatment Clinician Date BMI (body BMI (body Disease Active Uni vers mass mass - ity of index), index), 00:00: [place] pediatric, pediatric, 00 Me dical [facility] than or than or equal to equal to 95% for 95% for age age H/O H/O Disease Active Univers self-harm self-harm - ity of 00:00: [place] 00 Medical Branch Depression Depression Disease Active U nivers - ity of 00:00: [place] 00 Medical Branch Other Other Disease Active Univers malaise malaise 6-23 ity of and and 00:00: [place] fatigue fatigue 00 Medical Branch Anxiety Anxiety Disease Active Univers ity of [place] [facility] Allergies, Adverse Reactions, Alerts Allergy Allergy Status Severity Reaction(s) Onset Inactive Treating Comm ents Source Name Type Date Date Clinician NO KNOWN Drug Active Univers ALLERGIE Class ity of S [facility] Social History Social Habit Start Date Stop Date Quantity Comments Source Exposure to Not sure University SARS-CoV-2 [facility] (event) Branch Tobacco use and 2021-05-18 2021-05-18 Never used Universit y of exposure 00:00:00 00:00:00 [facility] Alcohol intake 2021-05-18 2021-05-18 Current University of 00:00:00 00:00:00 non-drinker of [facility] alcohol Branch (finding) Tobacco Comment 2014-04-03 2014-04-03 mother smokes Univer sity of 00:00:00 00:00:00 outside of house [facility] dical [place] Sex Assigned At [birth year] Universit y of 00:00:00 00:00:00 [facility] Smoking Status Start Date Stop Date Source Never smoker [facility] Medical Branch Medications Ordered Filled Start Stop Current Ordering Indication Dosage Frequency Signature Comments Components Source Medication Medication Date Date Medication? Clinician (SIG) Name Name escitalopra Yes 10mg Take 10 mg Univers m oxalate 2-20 by mouth ity of 10 mg 00:00: at [place] tablet 00 bedtime. Medical Branch lithium Yes 300mg Take 300 Unive rs carbonate 2-20 mg by ity of 300 mg 00:00: mouth 2 [place] tablet 00 (two) Medical times Branch daily. escitalopra Yes 10mg Take 10 mg Univers m oxalate 2-20 by mouth ity of 10 mg 00:00: at [place] tablet 00 bedtime. Medical Branch lithium Yes 300mg Take 300 Unive rs carbonate 2-20 mg by ity of 300 mg 00:00: mouth 2 [place] tablet 00 (two) Medical times Branch daily. escitalopra Yes 10mg Take 10 mg Univers m oxalate 2-20 by mouth ity of 10 mg 00:00: at [place] tablet 00 bedtime. Medical Branch lithium Yes 300mg Take 300 Unive rs carbonate 2-20 mg by ity of 300 mg 00:00: mouth 2 [place] tablet 00 (two) Medical times Branch daily. escitalopra Yes 10mg Take 10 mg Univers m oxalate 2-20 by mouth ity of 10 mg 00:00: at [place] tablet 00 bedtime. Medical Branch lithium Yes 300mg Take 300 Unive rs carbonate 2-20 mg by ity of 300 mg 00:00: mouth 2 [place] tablet 00 (two) Medical times Branch daily. escitalopra 2020-0 Yes 10mg Take 10 mg Univers m oxalate 2-20 by mouth ity of 10 mg 00:00: at [place] tablet 00 bedtime. Medical Branch lithium Yes 300mg Take 300 Unive rs carbonate 2-20 mg by ity of 300 mg 00:00: mouth 2 [place] tablet 00 (two) Medical times Branch daily. escitalopra 2020-0 Yes 10mg Take 10 mg Univers m oxalate 2-20 by mouth ity of 10 mg 00:00: at [place] tablet 00 bedtime. Medical Branch lithium Yes 300mg Take 300 Unive rs carbonate 2-20 mg by ity of 300 mg 00:00: mouth 2 [place] tablet 00 (two) Medical times Branch daily. escitalopra 2020-0 Yes 10mg Take 10 mg Univers m oxalate 2-20 by mouth ity of 10 mg 00:00: at [place] tablet 00 bedtime. Medical Branch lithium Yes 300mg Take 300 Unive rs carbonate 2-20 mg by ity of 300 mg 00:00: mouth 2 [place] tablet 00 (two) Medical times Branch daily. lithium 600 2020- No 1 (EACH) U nivers mg capsule 10-30 TWICE A ity o f 00:00: 00:00 DAY [place] 00 :00 Medical Branch lithium 600 2020- No 1 (EACH) U nivers mg capsule 10-30 TWICE A ity o f 00:00: 00:00 DAY [place] 00 :00 Medical Branch omeprazole 2016-10- No [id number] 40mg Take 1 U nivers 40 mg 12-09 capsule by ity of capsule 00:00: 00:00 mouth [place] 00 :00 daily. Medical Branch omeprazole 2016-10- No [id number] 40mg Take 1 U nivers 40 mg 12-09 capsule by ity of capsule 00:00: 00:00 mouth [place] 00 :00 daily. Medical Branch buPROPion 2016-10- No [id number] TAKE 1 Un sara XL 300 mg 212-10 TABLET BY ity of 24 hr 00:00: 00:00 MOUTH [place] tablet 00 :00 EVERY Medical MORNING [place] hydrOXYzine 2016-10- No [id number] TAKE 1 Univers 100 mg 2- TABLET BY ity of capsule 00:00: 00:00 MOUTH [place] 00 :00 EVERY Medical EVENING AT [facility] hydrOXYzine 2016-10- No [id number] TAKE 1 Univers 50 mg 11-18 TABLET BY ity of capsule 00:00: 00:00 MOUTH [place] 00 :00 EVERY Medical MORNING AT [place] 8AM AND AGAIN AT [facility] naltrexone 2016-10- No [id number] TAKE 1 U nivers 50 mg 11-18 TABLET BY ity of tablet 00:00: 00:00 MOUTH [place] 00 :00 EVERY Medical EVENING AT [facility] buPROPion 2016-10- No [id number] TAKE 1 Un sara XL 300 mg 11-18 TABLET BY ity of 24 hr 00:00: 00:00 MOUTH [place] tablet 00 :00 EVERY Medical MORNING [place] hydrOXYzine 2016-10- No [id number] TAKE 1 Univers 100 mg 11-18- TABLET BY ity of capsule 00:00: 00:00 MOUTH [place] 00 :00 EVERY Medical EVENING AT [facility] hydrOXYzine 2016-10- No [id number] TAKE 1 Univers 50 mg 11-18- TABLET BY ity of capsule 00:00: 00:00 MOUTH [place] 00 :00 EVERY Medical MORNING AT [place] 8AM AND AGAIN AT [facility] naltrexone 2016-10- No [id number] TAKE 1 U nivers 50 mg 11-18 TABLET BY ity of tablet 00:00: 00:00 MOUTH [place] 00 :00 EVERY Medical EVENING AT [facility] Immunizations Ordered Immunization Filled Immunization Date Status Commen ts Source Name Name Meningococcal 2017-10-20 Completed University of Polysaccharide 00:00:00 [place] Medi logan (groups A, C, Y and Branc h W-135) conjugate vaccine (MCV4P) Meningococcal 2017-10-20 Completed University of Polysaccharide 00:00:00 [place] Medi logan (groups A, C, Y and Branc h W-135) conjugate vaccine (MCV4P) Meningococcal 2017-10-20 Completed University of Polysaccharide 00:00:00 [place] Medi logan (groups A, C, Y and Branc h W-135) conjugate vaccine (MCV4P) Meningococcal 2017-10-20 Completed University of Polysaccharide 00:00:00 [place] Medi logan (groups A, C, Y and Branc h W-135) conjugate vaccine (MCV4P) Meningococcal 2017-10-20 Completed University of Polysaccharide 00:00:00 [place] Medi logan (groups A, C, Y and Branc h W-135) conjugate vaccine (MCV4P) Meningococcal 2017-10-20 Completed University of Polysaccharide 00:00:00 [place] Medi logan (groups A, C, Y and Branc h W-135) conjugate vaccine (MCV4P) Meningococcal 2017-10-20 Completed University of Polysaccharide 00:00:00 [place] Medi logan (groups A, C, Y and Branc h W-135) conjugate vaccine (MCV4P) Influenza Virus 2015-08-24 Completed Universit y of Vaccine Quad Nasal 00:00:00 [facility] Influenza Virus 2015-08-24 Completed Universit y of Vaccine Quad Nasal 00:00:00 [facility] Influenza Virus 2015-08-24 Completed Universit y of Vaccine [place] Nasal 00:00:00 [facility] Influenza Virus 2015-08-24 Completed Universit y of Vaccine Quad Nasal 00:00:00 [facility] Influenza Virus 2015-08-24 Completed Universit y of Vaccine [place] Nasal 00:00:00 [facility] Influenza Virus 2015-08-24 Completed Universit y of Vaccine [place] Nasal 00:00:00 [facility] Influenza Virus 2015-08-24 Completed Universit y of Vaccine [place] Nasal 00:00:00 [facility] HEPATITIS A 2006-01-14 Completed University of 00:00:00 [facility] HEPATITIS A 2006-01-14 Completed University of 00:00:00 [facility] HEPATITIS A 2006-01-14 Completed University of 00:00:00 [facility] HEPATITIS A 2006-01-14 Completed University of 00:00:00 [facility] HEPATITIS A 2006-01-14 Completed University of 00:00:00 [facility] HEPATITIS A 2006-01-14 Completed University of 00:00:00 [facility] HEPATITIS A 2006-01-14 Completed University of 00:00:00 [facility] Vital Signs Vital Name Observation Time Observation Value Comments Source Systolic blood 2021-05-27 07:34:00 124 mm[Hg] Univer sity of pressure [place] [facility] Diastolic blood 2021-05-27 07:34:00 73 mm[Hg] Unive rsity of pressure [place] [facility] Heart rate 2021-05-27 07:34:00 79 /min Universi ty of [place] [facility] Body temperature 2021-05-27 07:34:00 36.56 Bridget Univ ersity of [place] [facility] Respiratory rate 2021-05-27 07:34:00 20 /min Univ ersity of [place] [facility] Body weight 2021-05-27 07:34:00 128.368 kg Universi ty of [place] [facility] BMI 2021-05-27 07:34:00 39.47 kg/m2 Universi ty of [place] [facility] Oxygen saturation in 2021-05-27 07:34:00 100 /min University of Arterial blood by [facility] Pulse oximetry Branch Systolic blood 2021-05-19 01:00:00 111 mm[Hg] Univer sity of pressure [place] [facility] Diastolic blood 2021-05-19 01:00:00 61 mm[Hg] Unive rsity of pressure [place] [facility] Heart rate 2021-05-19 01:00:00 80 /min Universi ty of [place] [facility] Respiratory rate 2021-05-19 01:00:00 15 /min Univ ersity of [place] [facility] Body temperature 2021-05-19 00:27:00 36.72 Bridget Univ ersity of [place] [facility] Body height 2021-05-19 00:27:00 180.3 cm Universi ty of [place] [facility] Oxygen saturation in 2021-05-19 00:27:00 96 /min University of Arterial blood by [facility] Pulse oximetry Branch Systolic blood 2020-12-10 20:46:00 112 mm[Hg] Univer sity of pressure [place] [facility] Diastolic blood 2020-12-10 20:46:00 60 mm[Hg] Unive rsity of pressure [place] [facility] Heart rate 2020-12-10 20:46:00 79 /min Universi ty of [place] [facility] Body temperature 2020-12-10 20:46:00 35.72 Bridget Univ ersity of [place] [facility] Body height 2020-12-10 20:46:00 180.3 cm Universi ty of [place] [facility] Body weight 2020-12-10 20:46:00 128.368 kg Universi ty [facility] BMI 2020-12-10 20:46:00 39.47 kg/m2 Universi ty [facility] Branch Systolic blood 2020-12-10 20:46:00 112 mm[Hg] Univer sity of pressure [facility] Diastolic blood 2020-12-10 20:46:00 60 mm[Hg] Unive rsity of pressure [facility] Heart rate 2020-12-10 20:46:00 79 /min Universi ty [facility] Body temperature 2020-12-10 20:46:00 35.72 Bridget Univ ersity of [facility] Body height 2020-12-10 20:46:00 180.3 cm Universi ty of [place] [facility] Body weight 2020-12-10 20:46:00 128.368 kg Universi ty [facility] BMI 2020-12-10 20:46:00 39.47 kg/m2 Universi [facility] Procedures Procedure Date / Time Performed Performing Clinician [facility] e NOTICE OF PRIVACY 2021-05-27 07:28:30 [facility] Un[facility]igned, [facility] Medical Branch CONSENT/REFUSAL FOR 2021-05-27 07:28:11 Doctor Unassigned, No Un [facility] DIAGNOSIS AND Name Medical Branch TREATMENT SD RESUP NPTERF WND 2021-05-19 02:04:00 Alexia Ramey [facility] ity of [place] BODY 2.6-7.5 CM Medical [place] Encounters Start End Encounter Admission Attending Care Care Encounter Source Date/Time Date/Time Type Type Clinicians Facility Department ID 2021-08-12 Emergency [facility] [id number] Univers 15:40:37 ity of [place] [facility] 2021-08-12 Emergency [facility] [id number] Univers 13:52:37 ity of [facility] 2021-05-27 2021-05-27 Emergency Karoline [facility] [id number] Univers 02:37:00 04:07:00 Alexia Zamora [id number] ity of [place] [id number] [facility] [phone] [facility] 084 Branch 2021-05-27 2021-05-27 Orders Doctor DK [id number] Univers 00:00:00 00:00:00 Only Unassigned, ANDRÉS [id number] ity of [place] [facility] [id number] Theodore as [phone] [facility] 009 Branch 2021-05-18 2021-05-18 Emergency [facility] [id number] Univers 19:21:00 20:53:00 Alexia Zamora [id number] it[id number] [place] [phone] [facility] 084 [place] 2020-12-12 2020-12-12 Telephone [facility] [id number] 00:00:00 00:00:00 [facility] [id number] Edward [place] [id number] Professio [phone] [place] [address] [address] 2020-12-12 2020-12-12 Telephone [facility] [id number] [facility] 00:00:00 00:00:00 [facility] [id number] it y of [place] [id number] Theodore as Professio [phone] [address] Office [facility] One 2020-12-10 2020-12-10 [place], [facility] [id number] 15:06:40 15:26:40 [facility] [id number] [place] [id number] Professio [phone] [place] [address] [address] 2020-12-10 2020-12-10 [place] [facility], [facility] I [facility] [id number] Univers 15:06:40 15:26:[address] [facility] [id number] ity of [place] [id number] Theodore as Professio [phone] [address] Office [address] 2020-12-10 2020-12-10 Office [facility] [id number] 14:36:00 15:06:00 Visit [facility] [id number] Robert Zamora [id number] Professio [phone] [place] [address] 2020-12-10 2020-12-10 Office [facility] [id number] Univers 14:36:00 15:06:00 Visit [facility] [id number] it y of Robert Zamora [id number] Theodore as Professio [phone] Me dical [facility] 044 [place] Office [facility] One 2020-12-10 2020-12-10 [facility] [id number] Univers 14:30:00 14:30:00 BENSON [id number] [facility] 2020-12-10 2020-12-10 Outpatient N[facility] [id number] Univers 14:30:00 14:30:00 [facility] Results Test Description Test Test Results Result Source Time Comments Comments Laceration 2021-05- Alexia Ramey MD ? Un iversity of Repair 08 ? 05/18/2021 ?9:04 [facility] dical 02:04:00 [facility] RepairPerformed by: Alexia [facility] Alexia Ramey MD Consent: ?Consent obtained: ?Verbal ?Consent given by: ?Patient ?Risks discussed: ?Infection, nerve damage, need for additional repair, poor cosmetic result, pain, poor wound healing, retained foreign body, tendon damage and vascular damage ?Alternatives discussed: ?Delayed treatmentAnesthesia (see MAR for exact dosages): ?Anesthesia method: ?Local infiltration ?Local anesthetic: ?Lidocaine 1% w/o epiLaceration details: ?Location: ?Shoulder/arm ?Shoulder/arm location: ?L lower arm ?Length (cm): ?5 ?Depth (mm): ?0.5Repair type: ?Repair type: ?SimplePre-procedure details: ?Preparation: ?Patient was prepped and draped in usual sterile fashionExploration: ?Hemostasis achieved with: ?Direct pressure ?Wound exploration: wound explored through full range of motion and entire depth of wound probed and visualized ? ?Wound extent: no areolar tissue violation noted, no fascia violation noted, no foreign bodies/material noted, no muscle damage noted, no nerve damage noted, no tendon damage noted, no underlying fracture noted and no vascular damage noted ? ?Contaminated: no ?Treatment: ?Area cleansed with: ?Hibiclens ?Amount of cleaning: ?Standard ?Irrigation volume: ?1000 ?Irrigation method: ?Pressure wash ?Visualized foreign bodies/material removed: no ?Skin repair: ?Repair method: ?Sutures ?Suture size: ?4-0 ?Suture material: ?Prolene ?Suture technique: ?Simple interrupted ?Number of sutures: ?6Approximation: ?Approximation: ?LoosePost-procedure details: ?Dressing: ?Non-adherent dressing and antibiotic ointment ?Patient tolerance of procedure: ?Tolerated well, no immediate complications
[2021-09-02] MEDS ORDERED: TETRACAINE HCL 0.5% 4ML OPTH ONE (03:35)
[2021-09-02] MEDS ORDERED: FLUORESCEIN SODIUM 1 MG/WRAP ONE (03:35)
[2021-09-02 03:37] LABS: Absolute Lymphocytes (CBC) 2.3 K/uL (0.7-4.9); Basophils % 0.3 % (0-1.3); Hematocrit 43.8 % (39.6-49.0); Lymphocytes % 25.1 % (15.3-44.8); MPV 9.6 fL (7.6-11.3); Protime INR 1.06; RBC Red Blood Cell Count 4.98 M/uL (4.33-5.43)
[2021-09-02 03:52] LABS: ALT/SGPT 29 U/L (12-78); AST/SGOT 21 U/L (15-37); Albumin 4.2 g/dL (3.4-5.0); Alkaline Phosphatase 93 U/L (45-117); BUN Blood Urea Nitrogen 13 mg/dL (7-18); Bicarbonate 27 mmol/L (21-32); Bilirubin Direct 0.2 mg/dL (0-0.2); Bilirubin Total 0.5 mg/dL (0.2-1.0); Glucose Level 92 mg/dL (74-106); Potassium 3.7 mmol/L (3.5-5.1); Protein, Total 8.9 g/dL (6.4-8.2); Sodium Level 140 mmol/L (136-145)
[2021-09-02 04:02] LABS: Barbiturates NEGATIVE (NEGATIVE); Benzodiazepines NEGATIVE (NEGATIVE); Cocaine NEGATIVE (NEGATIVE); METHAMPHETAM NEGATIVE (NEGATIVE); Methadone NEGATIVE (NEGATIVE); Opiates NEGATIVE (NEGATIVE); Phencyclidine NEGATIVE (NEGATIVE); THC Cannibis NEGATIVE (NEGATIVE)
--- NOTE | 2021-09-02 04:29 | ER ---
Nurse's Notes [facility] Name: Luis Fernando Silva Age: 21 yrs Sex: Male : 2000 Arrival Date: 09/02/2021 Time: 01:42 Bed 24 Private MD: Diagnosis: Corneal Abrasion, Left Eye;Transient visual loss, left eye Presentation: 09/02 01:53 Chief complaint: Patient states: "I was at work about an hour ago and I suddenly lp1 couldn't see out of my left eye and I lost my peripheral vision"; Patient reports lasted for about 40 minutes, resolved at this time; Reports pulsating headache when loss of vision and continued. Coronavirus screen: At this time, the client does not indicate any symptoms associated with coronavirus-19. Ebola Screen: No symptoms or risks identified at this time. Risk Assessment: Do you want to hurt yourself or someone else? Patient reports no desire to harm self or others. Onset of symptoms. 01:53 Method Of Arrival: Ambulatory lp1 01:53 Acuity: LALIT 3 lp1 01:55 Onset of symptoms was September 01, 2021 at 23:30. lp1 01:57 Initial Sepsis Screen: Does the patient meet any 2 criteria? No. Patient's initial lp1 sepsis screen is negative. Does the patient have a suspected source of infection? No. Patient's initial sepsis screen is negative. Triage Assessment: 02:11 General: Appears in no apparent distress. comfortable, Behavior is calm, cooperative. mr2 Pain: Denies pain. Historical: - Allergies: 01:56 No Known Allergies; lp1 - Home Meds: 01:56 None [Active]; lp1 - PMHx: 01:56 Anxiety; Depression; lp1 - PSHx: 01:56 None; lp1 - Immunization history:: Adult Immunizations up to date. - Social history:: Smoking status: Patient denies any tobacco usage or history of. Patient/guardian denies using street drugs. Screenin:51 Abuse screen: Denies threats or abuse. Denies injuries from another. Nutritional lp1 screening: No deficits noted. Tuberculosis screening: No symptoms or risk factors identified. Fall Risk None identified. Assessment: 02:11 EENT: Reports blurred vision photophobia. mr2 Vital Signs: 01:45 BP 120 / 74; Pulse 70; Resp 17; Temp 98.3; Pulse Ox 100% on R/A; Pain 1/10; mr2 01:57 BP 126 / 63; Pulse 67; Resp 18; Temp 98.1(TE); Pulse Ox 100% on R/A; Weight 105.23 kg lp1 (R); Height 5 ft. 11 in. (180.34 cm); Pain 7/10; 01:57 Body Mass Index 32.36 (105.23 kg, 180.34 cm) lp1 ED Course: 01:42 Patient arrived in ED. wm 01:55 Triage completed. lp1 01:55 Arm band placed on right wrist. lp1 02:06 Albert Campuzano MD is Attending Physician. 7 02:07 Leroy Lala, ARUN is Primary Nurse. mr2 02:11 Patient has correct armband on for positive identification. Bed in low position. Call mr2 light in reach. Side rails up X2. 02:11 Inserted saline lock: 18 gauge in left antecubital area, using aseptic technique. mr2 02:37 Acetaminophen Sent. mr2 02:37 Basic Metabolic Panel Sent. mr2 02:37 CBC with Diff Sent. mr2 02:37 ETOH Level Sent. mr2 02:37 Hepatic Function Sent. mr2 02:37 PT-INR Sent. mr2 02:37 Ptt, Activated Sent. mr2 02:37 Salicylate Sent. mr2 02:37 Urine Drug Screen Sent. mr2 02:47 CT Head Brain wo Cont In Process Unspecified. EDMS 04:26 Beatriz Campbell MD is Referral Physician. mh7 04:36 No provider procedures requiring assistance completed. mr2 04:37 IV discontinued, intact, No redness/swelling at site. mr2 Administered Medications: 03:40 Drug: Tetracaine Drops 0.5 % 1 drops {Note: admin by dr campuzano.} Route: Ophthalmic; mr2 Site: both eyes; 03:41 Drug: Fluorescein Strip 1 strip {Note: admin by dr campuzano.} Route: Ophthalmic; Site: mr2 both eyes; Outcome: 04:28 Discharge ordered by . mh7 04:37 Discharged to home ambulatory. mr2 04:37 Condition: stable 04:37 Discharge instructions given to patient, Instructed on discharge instructions, follow up and referral plans. 04:37 Patient left the ED. mr2 Signatures: Dispatcher [employer] EDMayra Maya RN RN lp1 Albert Campuzano MD MD [facility] Darline Álvarez Mike, RN RN mr2 Corrections: (The following items were deleted from the chart) 01:59 01:53 Chief complaint: Patient states: "I was at work about an hour ago and I suddenly lp1 couldn't see out of my left eye and I lost my peripheral vision"; Patient reports lasted for about 40 minutes, resolved at this time lp1
--- NOTE | 2021-09-02 04:29 | EDPHYS ---
Physician Documentation [facility] Name: Luis Fernando Silva Age: 21 yrs Sex: Male : 2000 Arrival Date: 09/02/2021 Time: 01:42 Bed 24 Private MD: ED Physician Albert Campuzano HPI: 09/02 02:38 This 21 yrs old Male presents to ER via Ambulatory with complaints of Loss Of Vision. mh7 02:38 The patient is experiencing blurred vision, decreased vision. mh7 02:38 Onset: The symptoms/episode began/occurred today. Duration: the symptoms last 30 mh7 minute(s). Aggravated by nothing. Alleviated by nothing. Associated signs and symptoms: Pertinent positives: headache, Later after vision issue resolved, Pertinent negatives: chills, dizziness, ear ache, fever, runny nose. Patient does not utilize any form of vision correction. Severity of symptoms: At their worst the symptoms were moderate today, in the emergency department the symptoms have resolved and did so earlier today. The patient has experienced similar episodes in the past, several times. Historical: - Allergies: 01:56 No Known Allergies; lp1 - Home Meds: 01:56 None [Active]; lp1 - PMHx: 01:56 Anxiety; Depression; lp1 - PSHx: 01:56 None; lp1 - Immunization history:: Adult Immunizations up to date. - Social history:: Smoking status: Patient denies any tobacco usage or history of. Patient/guardian denies using street drugs. ROS: 02:38 Constitutional: Negative for fever, chills, and weight loss, ENT: Negative for injury, mh7 pain, and discharge, Neck: Negative for injury, pain, and swelling, Cardiovascular: Negative for chest pain, palpitations, and edema, Respiratory: Negative for shortness of breath, cough, wheezing, and pleuritic chest pain, Abdomen/GI: Negative for abdominal pain, nausea, vomiting, diarrhea, and constipation, Back: Negative for injury and pain, : Negative for injury, bleeding, discharge, and swelling, MS/Extremity: Negative for injury and deformity, Skin: Negative for injury, rash, and discoloration. 02:38 Psych: Negative for depression, anxiety, suicide ideation, homicidal ideation, and hallucinations, Allergy/Immunology: Negative for hives, rash, and allergies, Endocrine: Negative for neck swelling, polydipsia, polyuria, polyphagia, and marked weight changes, Hematologic/Lymphatic: Negative for swollen nodes, abnormal bleeding, and unusual bruising. 02:38 Neuro: Negative for altered mental status, dizziness, gait disturbance, hearing loss, loss of consciousness, numbness, seizure activity, speech changes, syncope, near syncope, tingling, tinnitus, tremor, weakness. Exam: 02:38 Constitutional: This is a well developed, well nourished patient who is awake, alert, mh7 and in no acute distress. Head/Face: Normocephalic, atraumatic. ENT: Nares patent. No nasal discharge, no septal abnormalities noted. Tympanic membranes are normal and external auditory canals are clear. Oropharynx with no redness, swelling, or masses, exudates, or evidence of obstruction, uvula midline. Mucous membranes moist. Neck: Trachea midline, no thyromegaly or masses palpated, and no cervical lymphadenopathy. Supple, full range of motion without nuchal rigidity, or vertebral point tenderness. No Meningismus. Chest/axilla: Normal chest wall appearance and motion. Nontender with no deformity. No lesions are appreciated. Cardiovascular: Regular rate and rhythm with a normal S1 and S2. No gallops, murmurs, or rubs. Normal PMI, no JVD. No pulse deficits. Respiratory: Lungs have equal breath sounds bilaterally, clear to auscultation and percussion. No rales, rhonchi or wheezes noted. No increased work of breathing, no retractions or nasal flaring. Abdomen/GI: Soft, non-tender, with normal bowel sounds. No distension or tympany. No guarding or rebound. No evidence of tenderness throughout. Back: No spinal tenderness. No costovertebral tenderness. Full range of motion. Skin: Warm, dry with normal turgor. Normal color with no rashes, no lesions, and no evidence of cellulitis. MS/ Extremity: Pulses equal, no cyanosis. Neurovascular intact. Full, normal range of motion. Neuro: Awake and alert, GCS 15, oriented to person, place, time, and situation. Cranial nerves II-XII grossly intact. Motor strength 5/5 in all extremities. Sensory grossly intact. Cerebellar exam normal. Normal gait. Psych: Awake, alert, with orientation to person, place and time. Behavior, mood, and affect are within normal limits. 03:35 Eyes: Periorbital structures: appear normal, Pupils: equal, round, and reactive to mh7 light and accomodation, Extraocular movements: intact throughout, Conjunctiva: normal, Corneas: abrasion, that is moderate sized, on the left, at 6 o'clock, a fluorescein strip employed to appreciate the findings, Sclera: no appreciated abnormality, Lids and lashes: appear normal, bilaterally, funduscopic exam reveals no obvious abnormalities, Visual aguila: are intact, Nystagmus: is not appreciated, Intraocular pressure: unable to test, patient refuses. Vital Signs: 01:45 BP 120 / 74; Pulse 70; Resp 17; Temp 98.3; Pulse Ox 100% on R/A; Pain 1/10; mr2 01:57 BP 126 / 63; Pulse 67; Resp 18; Temp 98.1(TE); Pulse Ox 100% on R/A; Weight 105.23 kg lp1 (R); Height 5 ft. 11 in. (180.34 cm); Pain 7/10; 01:57 Body Mass Index 32.36 (105.23 kg, 180.34 cm) lp1 MDM: 04:24 Differential diagnosis: Corneal abrasion of left eye. Corneal ulcer of left eye. mh7 Foreign body in left eye. Acute iritis of left eye. Acute glaucoma in left eye. Ultraviolet keratitis in left eye. Data reviewed: vital signs, nurses notes, old medical records, lab test result(s), CBC, drug level(s), acetaminophen, alcohol, electrolytes, urine drug screen, radiologic studies, CT scan. Data interpreted: Pulse oximetry: on room air is 100 %. Interpretation: normal. Counseling: I had a detailed discussion with the patient and/or guardian regarding: the historical points, exam findings, and any diagnostic results supporting the discharge/admit diagnosis, lab results, radiology results, the need for outpatient follow up, an opthalmologist, to return to the emergency department if symptoms worsen or persist or if there are any questions or concerns that arise at home. Response to treatment: the patient's symptoms have resolved after treatment, the patient's blood pressure is in an acceptable range, mental status has returned to baseline, the patient no longer shows bradycardia, the patient is not short of breath, the patient is not tachycardic, the patient's pain is gone, the patient's temperature has normalized. 04:28 Patient medically screened. [facility] 04:30 ED course: Well-appearing, no acute distress, vital signs stable, no focal neurological [facility] deficits. Playing with cell phone sitting on stretcher. No visual disturbance, eye pain, headache, nausea, vomiting or other complaints. Discussed all test results and findings with the patient answered all his questions. He request to be discharged from the ED at this time. Recommend follow-up with [facility] specialist in next 24 to 48 hours but return to ED if worsening of symptoms or other urgent concerns.. 09/02 02:25 Order name: Acetaminophen; Complete Time: 03:59 [facility] 09/02 02:25 Order name: Basic Metabolic Panel; Complete Time: 03:59 7 09/02 02:25 Order name: CBC with Diff; Complete Time: 03:59 7 09/02 02:25 Order name: ETOH Level; Complete Time: 03:59 [facility] 09/02 02:25 Order name: Hepatic Function; Complete Time: 03:59 09/02 02:25 Order name: PT-INR; Complete Time: 03:59 7 09/02 02:25 Order name: Ptt, Activated; Complete Time: 03:59 [facility] 09/02 02:25 Order name: Salicylate; Complete Time: 03:59 7 09/02 02:25 Order name: Urine Drug Screen; Complete Time: 04:04 09/02 02:25 Order name: EKG; Complete Time: 02:26 [facility] 09/02 02:25 Order name: EKG - Nurse/Tech; Complete Time: 02:35 09/02 02:25 Order name: CT Head Brain wo Cont 09/02 02:25 Order name: IV Saline Lock; Complete Time: 02:35 [facility] 09/02 02:25 Order name: Labs collected and sent; Complete Time: 02:35 [facility] 09/02 02:25 Order name: Suicide Screening ([place]); Complete Time: 02:35 [facility] 09/02 02:25 Order name: Urine Dipstick-Ancillary (obtain specimen); Complete Time: 02:35 7 Administered Medications: 03:40 Drug: Tetracaine Drops 0.5 % 1 drops {Note: admin by dr campuzano.} Route: Ophthalmic; mr2 Site: both eyes; 03:41 Drug: Fluorescein Strip 1 strip {Note: admin by dr campuzano.} Route: Ophthalmic; Site: mr2 both eyes; Disposition Summary: 09/02/21 04:28 Discharge Ordered Location: Home [facility] Problem: new [facility] Symptoms: are resolved [facility] Condition: Stable mh7 Diagnosis - Corneal Abrasion, Left Eye 7 - Transient visual loss, left eye [facility] Followup: [facility] - With: Private Physician - When: 1 - 2 days - Reason: If symptoms return, Worsening of condition, Recheck today's complaints, Continuance of care, Re-evaluation by your physician Followup: [facility] - With: Beatriz Campbell MD - When: 1 - 2 days - Reason: Worsening of condition, Recheck today's complaints Discharge Instructions: - Discharge Summary Sheet [facility] - Visual Disturbances mh - Corneal Abrasion, [id number] [facility] Forms: - Medication Reconciliation Form [facility] - Thank You Letter [facility] - Antibiotic Education [facility] - Prescription Opioid Use [facility] Prescriptions: - Ciloxan 0.3 % Ophthalmic Drops - instill 2 drops by OPHTHALMIC route every 6 hours for 7 days; 5 milliliter; [facility] Refills: 0, Product Selection Permitted Signatures: Dispatcher [employer] EDMS Mayra Carlos RN RN lp1 Albert Campuzano MD MD 7 Leroy Lala RN RN mr2
[2021-09-02 04:44] VITALS: O2SAT 100
[2021-09-02 04:46] VITALS: BP 126/63; TEMP 98.1
--- NOTE | 2021-09-02 11:16 | RAD REPORT ---
EXAM DESCRIPTION: Head Brain Wo Cont CLINICAL HISTORY: VISUAL DISTURBANCES COMPARISON: None Available. TECHNIQUE: Multiple helical axial tomographic images were obtained of the head without intravenous c ontrast. This exam was performed according to our departmental dose-optimization program, which inclu gwen automated exposure control, adjustment of the mA and/or kV according to patient size and/or use o f iterative reconstruction technique. FINDINGS: There is no acute intracranial hemorrhage. No mass. No midline shift. No ventriculomegaly. Zendejas-white matter differentiation is maintained. Paranasal sinuses are clear. Mastoid air cells and middle ear spaces are clear. Orbits and orbital co ntents are unremarkable. Osseous structures are unremarkable. Surrounding soft tissues are unremarkable. IMPRESSION: No acute intracranial process. Electronically signed by: Dale Zuniga MD 09/02/2021 3:33 AM COAT OPERATOR INSULATOR Due to temporary technical issues with the PACS/Fluency reporting system, reports are being signed by the in house radiologist without review as a courtesy to ensure prompt reporting. The interpreting r adiologist is fully responsible for the content of the report.
--- NOTE | 2021-09-04 08:10 | EKG ---
Test Date: 2021-09-02 Test Time: 03:53:43 Laser Beam Cutter: MICHA MEASUREMENT RESULTS: Intervals: Rate: 59 [place]: 152 QRSD: 92 QT: 382 QTc: 378 [place]: P: 47 [place]: 152 QRS: 5 T: 37 INTERPRETIVE STATEMENTS: Sinus bradycardia with sinus arrhythmia Otherwise normal ECG Compared to ECG 05/12/2021 22:08:44 Sinus rhythm no longer present Electronically Signed On 09-04-21 08:03:59 PROPOSAL SPECIALIST by Deshaun Castañeda
== END 2021-09-02 04:37 | disposition home or self-care (01) ==
LOC: ER 01:39
DX: S05.02XA Injury of conjunctiva and corneal abrasion without foreign body, left eye, initial encounter (principal)
CPT/HCPCS: 36415; 70450; 80048; 80076; 80307; 80320; 80329; 85025; 85610; 85730; 93005; 99284

== ENCOUNTER 2021-12-22 18:44 | Emergency (ER) | payer OTHER ==
--- OUTSIDE RECORDS SUMMARY | 2021-12-22 18:47 | XMS REPORT | Continuity of Care Document ---
:2000 Author Organization [facility] t Address [address] [place] [address] Care Team Providers Name Role Phone Karoline CLEMONS, Theodora Attending Clinician Doctor Unassigned, Name Attending Clinician Unavailable Robert Mathews MD Attending Clinician Lab, Fam Pob I Attending Clinician Unavailable ROBERT MATHEWS Attending Clinician Unavailable Payers Payer Name Policy Type Policy Number Effective Date Expiration Date S [place] [employer] [id number] 2017 HEALTH 00:00:00 [facility] [id number] 2021 00:00:00 Problems Condition Condition Condition Status Onset Resolution Last Treating Co mments Source Name Details Category Date Date Treatment Clinician Date BMI (body BMI (body Disease Active Uni vers mass mass -09 ity of index), index), 00:00: [place] pediatric, pediatric, 00 Me dical [facility] than or than or equal to equal to 95% for 95% for age age H/O H/O Disease Active Univers self-harm self-harm - ity of 00:00: [place] 00 Medical Branch Depression Depression Disease Active U nivers - ity of 00:00: [place] 00 Medical Branch Other Other Disease Active Univers malaise malaise 6-23 ity of and and 00:00: [place] fatigue fatigue 00 Medical Branch Anxiety Anxiety Disease Active Univers ity of [place] [facility] Allergies, Adverse Reactions, Alerts Allergy Allergy Status Severity Reaction(s) Onset Inactive Treating Comm ents Source Name Type Date Date Clinician NO KNOWN Drug Active Univers ALLERGIE Class ity of S [facility] Social History Social Habit Start Date Stop Date Quantity Comments Source Exposure to Not sure University SARS-CoV-2 [facility] (event) Branch Tobacco use and 2021-05-18 2021-05-18 Never used Universit y of exposure 00:00:00 00:00:00 [facility] Alcohol intake 2021-05-18 2021-05-18 Current University of 00:00:00 00:00:00 non-drinker of [facility] alcohol Branch (finding) Tobacco Comment 2014-04-03 2014-04-03 mother smokes Univer sity of 00:00:00 00:00:00 outside of house [facility] dical [place] Sex Assigned At 2000 2000 Universit y of 00:00:00 00:00:00 [facility] Smoking Status Start Date Stop Date Source Never smoker [facility] Medical Branch Medications Ordered Filled [...] 00 :00 Medical Branch omeprazole 2016-10- No [id number] 40mg Take 1 U nivers 40 mg 12-09 capsule by ity of capsule 00:00: 00:00 mouth [place] 00 :00 daily. Medical Branch omeprazole 2016-10- No [id number] 40mg Take 1 U nivers 40 mg 12-09 capsule by ity of capsule 00:00: 00:00 mouth [place] 00 :00 daily. Medical Branch buPROPion 2016-10- No [id number] TAKE 1 Un sara XL 300 mg 212-10 TABLET BY ity of 24 hr 00:00: 00:00 MOUTH [place] tablet 00 :00 EVERY Medical MORNING [place] hydrOXYzine 2016-10- No [id number] TAKE 1 Univers 100 mg 2- TABLET BY ity of capsule 00:00: 00:00 MOUTH [place] 00 :00 EVERY Medical EVENING AT [facility] hydrOXYzine 2016-10- No [id number] TAKE 1 Univers 50 mg 11-18 TABLET BY ity of capsule 00:00: 00:00 MOUTH [place] 00 :00 EVERY Medical MORNING AT [place] 8AM AND AGAIN AT [facility] naltrexone 2016-10- No [id number] TAKE 1 U nivers 50 mg 11-18 TABLET BY ity of tablet 00:00: 00:00 MOUTH [place] 00 :00 EVERY Medical EVENING AT [facility] buPROPion 2016-10- No [id number] TAKE 1 Un sara XL 300 mg 11-18 TABLET BY ity of 24 hr 00:00: 00:00 MOUTH [place] tablet 00 :00 EVERY Medical MORNING [place] hydrOXYzine 2016-10- No [id number] TAKE 1 Univers 100 mg 11-18- TABLET BY ity of capsule 00:00: 00:00 MOUTH [place] 00 :00 EVERY Medical EVENING AT [facility] hydrOXYzine 2016-10- No [id number] TAKE 1 Univers 50 mg 11-18- TABLET BY ity of capsule 00:00: 00:00 MOUTH [place] 00 :00 EVERY Medical MORNING AT [place] 8AM AND AGAIN AT [facility] naltrexone 2016-10- No [id number] TAKE 1 U nivers 50 mg 11-18 TABLET BY ity of tablet 00:00: 00:00 MOUTH [place] 00 :00 EVERY Medical EVENING AT [facility] Immunizations Ordered Immunization Filled Immunization Date Status Commen ts Source Name Name Meningococcal 2017-10-20 Completed University of Polysaccharide 00:00:00 [place] Medi logan (groups A, C, Y and Branc h W-135) conjugate vaccine (MCV4P) Meningococcal 2017-10-20 Completed University of Polysaccharide 00:00:00 [place] Medi logan (groups A, C, Y and Branc h W-135) conjugate vaccine (MCV4P) Meningococcal 2017-10-20 Completed University of Polysaccharide 00:00:00 [place] Medi lgoan (groups A, C, Y and Branc h [...] Meningococcal 2017-10-20 Completed University of Polysaccharide 00:00:00 [place] Medi logan (groups A, C, Y and Branc h W-135) conjugate vaccine (MCV4P) Influenza Virus 2015-08-24 Completed Universit y of Vaccine [place] Nasal 00:00:00 [facility] Influenza Virus 2015-08-24 Completed Universit y of Vaccine [place] 00:00:00 [facility] Influenza Virus 2015-08-24 Completed Universit y of Vaccine [place] Nas[place] 00:00:00 [facility] Influenza Virus 2015-08-24 Completed Universit y of Vaccine [place] Nas[place] 00:00:00 [facility] Influenza Virus 2015-08-24 Completed Universit y of Vaccine [place] 00:00:00 [facility] Influenza Virus 2015-08-24 Completed Universit y of Vaccine [place] Nas[place] 00:00:00 [facility] Influenza Virus 2015-08-24 Completed Universit y of Vaccine [place] 00:00:00 [facility] HEPATITIS A 2006-01-14 Completed University of 00:00:00 [facility] HEPATITIS A 2006-01-14 Completed University of 00:00:00 [facility] HEPATITIS A 2006-01-14 Completed University of 00:00:00 [facility] HEPATITIS A 2006-01-14 Completed University of 00:00:00 [facility] HEPATITIS A 2006-01-14 Completed University of 00:00:00 [facility] HEPATITIS A 2006-01-14 Completed University of 00:00:00 [facility] HEPATITIS A 2006-01-14 Completed University of 00:00:00 [facility] Vital Signs Vital Name Observation Time Observation Value Comments Source Systolic blood 2021-05-27 07:34:00 124 mm[Hg] Univer sity of pressure [place] [facility] Diastolic blood 2021-05-27 07:34:00 73 mm[Hg] Unive rsity of pressure [place] [facility] Heart rate 2021-05-27 07:34:00 79 /min Universi ty of [place] [facility] Body temperature 2021-05-27 07:34:00 36.56 Bridget Univ ersity of [place] [facility] Respiratory rate 2021-05-27 07:34:00 20 /min Univ ersity of [place] [facility] Body weight 2021-05-27 07:34:00 128.368 kg Universi ty of [place] [facility] BMI 2021-05-27 07:34:00 39.47 kg/m2 Universi ty of [place] [facility] Oxygen saturation in 2021-05-27 07:34:00 100 /min University of Arterial blood by [facility] Pulse oximetry Branch Systolic blood 2021-05-19 01:00:00 111 mm[Hg] Univer sity of pressure [place] [facility] Diastolic blood 2021-05-19 01:00:00 61 mm[Hg] Unive rsity of pressure [place] [facility] Heart rate 2021-05-19 01:00:00 80 /min Universi ty of [place] [facility] Respiratory rate 2021-05-19 01:00:00 15 /min Univ ersity of [place] [facility] Body temperature 2021-05-19 00:27:00 36.72 Bridget Univ ersity of [place] [facility] Body height 2021-05-19 00:27:00 180.3 cm Universi ty of [place] [facility] Oxygen saturation in 2021-05-19 00:27:00 96 /min University of Arterial blood by [facility] Pulse oximetry Branch Systolic blood 2020-12-10 20:46:00 112 mm[Hg] Univer sity of pressure [place] [facility] Diastolic blood 2020-12-10 20:46:00 60 mm[Hg] Unive rsity of pressure [place] [facility] Heart rate 2020-12-10 20:46:00 79 /min Universi ty of [place] [facility] Body temperature 2020-12-10 20:46:00 35.72 Bridget Univ ersity of [place] [facility] Body height 2020-12-10 20:46:00 180.3 cm Universi ty of [place] [facility] Body weight 2020-12-10 20:46:[address] [facility] BMI 2020-12-10 20:46:00 39.47 kg/m2 Universi ty [facility] Branch Systolic blood 2020-12-10 20:46:00 112 mm[Hg] Univer sity of pressure [facility] Diastolic blood 2020-12-10 20:46:00 60 mm[Hg] Unive rsity of pressure [facility] Heart rate 2020-12-10 20:46:00 79 /min Universi ty [facility] Body temperature 2020-12-10 20:46:00 35.72 Bridget Univ ersity of [facility] Body height 2020-12-10 20:46:00 180.3 cm Universi ty of [facility] Body weight 2020-12-10 20:46:[address] [facility] BMI 2020-12-10 20:46:00 39.47 kg/m2 Universi [facility] Procedures Procedure Date / Time Performed Performing Clinician [facility] e NOTICE OF PRIVACY 2021-05-27 07:28:30 [facility]igned, [facility] Medical Branch CONSENT/REFUSAL FOR 2021-05-27 07:28:11 Doctor Unassigned, No Un [facility] DIAGNOSIS AND Name Medical Branch TREATMENT MD RESUP NPTERF WND 2021-05-19 02:04:[address] [facility] ity of [place] BODY 2.6-7.5 CM Medical [place] Encounters Start End Encounter Admission Attending Care Care Encounter Source Date/Time Date/Time Type Type Clinicians Facility Department ID 2021-08-12 Emergency [facility] [id number] Univers 15:40:37 ity of [facility] 2021-08-12 Emergency [facility] [id number] Univers 13:52:37 ity of [facility] 2021-05-27 2021-05-27 Emergency Karoline [facility] [id number] Univers 02:37:00 04:07:00 Alexia Zamora [id number] ity of [place] [id number] [facility] [id number] [facility] 084 Branch 2021-05-27 2021-05-27 Orders Doctor DK [id number] Univers 00:00:00 00:00:00 Only Unassigned, ANDRÉS [id number] ity of [place] [facility] [phone] [facility] 009 Branch 2021-05-18 2021-05-18 Emergency [facility] [id number] Univers 19:21:00 20:53:00 Alexia Zamora [id number] ity of [id number] [place] [id number] [facility] 084 [place] 2020-12-12 2020-12-12 Telephone [facility] [id number] 00:00:00 00:00:00 [facility] [id number] [place] [id number] Professio [phone] [place] [address] [address] One 2020-12-12 2020-12-12 Telephone [facility] [id number] [facility] 00:00:00 00:00:00 [facility] [id number] it y of [place] [id number] Theodore as Professio [phone] [address] Office [facility] One 2020-12-10 2020-12-10 [facility], [facility] [id number] 15:06:40 15:26:40 [facility] [id number] [place] [id number] Professio [phone] [place] [address] Office Building One 2020-12-10 2020-12-10 [facility], [facility] I [facility] [id number] Univers 15:06:40 15:26:40 Visit [facility] justino [facility] [id number] ity of [place] [id number] Theodore as Professio [phone] [address] Office Building One 2020-12-10 2020-12-10 Office [facility] [id number] 14:36:00 15:06:00 Visit [facility] [id number] Robert Zamora [id number] Professio [phone] [place] 044 Office Building One 2020-12-10 2020-12-10 Office [facility] [id number] Univers 14:36:00 15:06:00 Visit [facility] [id number] it y of Robert Zamora [id number] Theodore as Professio [phone] Me dical [facility] 044 [place] Office [facility] One 2020-12-10 2020-12-10 Outpatient [facility] [id number] Q-[id number] Univers 14:30:00 14:30:00 BENSON [id number] [facility] 2020-12-10 2020-12-10 [facility] [id number] Univers 14:30:00 14:30:00 [facility] Results Test Description Test Test Results Result Source Time Comments Comments [place] 2021-05- Alexia Ramey MD ? Un iversity of Repair 08 ? 05/18/2021 ?9:04 [facility] dical 02:04:00 [facility] RepairPerformed by: Alexia Ramey [facility] by: Alexia Ramey MD Consent: ?Consent obtained: [...]
[2021-12-22 20:03] LABS: Absolute Lymphocytes (CBC) 2.9 K/uL (0.7-4.9); Hematocrit 42.8 % (39.6-49.0); Lymphocytes % 31.6 % (15.3-44.8); MPV 9.2 fL (7.6-11.3); RBC Red Blood Cell Count 4.82 M/uL (4.33-5.43)
[2021-12-22 20:07] LABS: Protime INR 1.1
[2021-12-22 20:39] LABS: ALT/SGPT 21 U/L (12-78); AST/SGOT 16 U/L (15-37); Albumin 3.9 g/dL (3.4-5.0); Alkaline Phosphatase 82 U/L (45-117); BUN Blood Urea Nitrogen 15 mg/dL (7-18); Bicarbonate 25 mmol/L (21-32); Bilirubin Direct 0.2 mg/dL (0-0.2); Bilirubin Total 0.4 mg/dL (0.2-1.0); Glucose Level 95 mg/dL (74-106); Potassium 3.4 mmol/L (3.5-5.1); Protein, Total 8.2 g/dL (6.4-8.2); Sodium Level 138 mmol/L (136-145)
[2021-12-22 21:41] LABS: Urine Blood Negative (Negative); Urine Glucose Negative (Negative); Urine Protein Negative (Negative); Urine Specific Gravity >=1.030 (1.005-1.030)
[2021-12-22 22:04] LABS: Barbiturates NEGATIVE (NEGATIVE); Benzodiazepines NEGATIVE (NEGATIVE); Cocaine NEGATIVE (NEGATIVE); METHAMPHETAM NEGATIVE (NEGATIVE); Methadone NEGATIVE (NEGATIVE); Opiates NEGATIVE (NEGATIVE); Phencyclidine NEGATIVE (NEGATIVE); THC Cannibis NEGATIVE (NEGATIVE)
--- NOTE | 2021-12-23 01:34 | ER ---
Nurse's Notes [facility] Name: Luis Fernando Silva Age: 21 yrs Sex: Male : 2000 Arrival Date: 12/22/2021 Time: 18:52 Bed 19 Private MD: Diagnosis: Suicidal ideations Presentation: 12/22 18:54 Chief complaint: Patient states: patient received via stretcher by EMS alert and awake, ag7 resp, even regular and unlabored, flat affect, clear speech, with suicidal ideation and a plan by using a vehicle to kill self. Coronavirus screen: Client denies travel out of the [place] in the last 14 days. At this time, the client does not indicate any symptoms associated with coronavirus-19. Ebola Screen: No symptoms or risks identified at this time. Initial Sepsis Screen: Does the patient meet any 2 criteria? No. Patient's initial sepsis screen is negative. Does the patient have a suspected source of infection? No. Patient's initial sepsis screen is negative. Risk Assessment: Do you want to hurt yourself or someone else? Patient reports desire/thoughts of hurting themselves or someone else. Provider notified. Onset of symptoms was December 08, 2021. 18:54 Method Of Arrival: EMS: [facility] ag7 18:54 Acuity: LALIT 2 ag7 Triage Assessment: 19:01 General: Appears well groomed, well developed, Behavior is calm, cooperative, flat. ag7 Pain: Denies pain. Historical: - Allergies: 18:59 No Known Allergies; ag7 - Home Meds: 18:59 None [Active]; ag7 - PMHx: 18:59 Anxiety; Depression; PTSD; ag7 - PSHx: 18:59 None; ag7 - Immunization history:: Adult Immunizations unknown, Client reports having NOT received the Covid vaccine. Flu vaccine status is unknown. - Social history:: Smoking status: Patient denies any tobacco usage or history of. Patient/guardian denies using alcohol, street drugs. Screenin:33 Abuse screen: Denies threats or abuse. Nutritional screening: No deficits noted. sf1 Tuberculosis screening: No symptoms or risk factors identified. Fall Risk None identified. Assessment: 22:41 General: Appears. General: Appears in no apparent distress. Behavior is calm, sf1 cooperative. General: patient does have old scars of cutting on both arms. Pain: Denies pain. Neuro: No deficits noted. Cardiovascular: No deficits noted. Respiratory: No deficits noted. GI: No deficits noted. : No deficits noted. EENT: No deficits noted. Derm: No deficits noted. Musculoskeletal: No deficits noted. 12/23 03:39 Reassessment: [facility] at bedside for transfer. lp1 Psych: 12/22 22:44 [place] Suicide Severity Screening: In the past month, have you wished you were sf1 or wished you could go to sleep and not wake up? Patient responds "yes." "In the past month, have you actually had any thoughts of killing yourself?" Patient responds "yes.". Subjective: Patient's mood is sad, Delusions are denied, Hallucinations are denied Having thoughts of suicide. Objective: Patient is cooperative, Speech is normal, Affect is flat, Patient has mutilated themselves by has a history but no current open wounds. Interventions: Removed personal items and placed in bag. Patient placed in hospital gown. Searched person for dangerous items. Urine collected and sent for urine drug test. Safety Checks: Personal items have been removed. Pt denies substance abuse. Commitment: Patient will be a voluntary commitment. Vital Signs: 18:54 BP 113 / 62 LA Sitting (man/reg); Pulse 65 MON; Resp 16 S; Temp 98.5(O); Pulse Ox 99% ag7 on R/A; Weight 103.87 kg; Height 5 ft. 11 in. (180.34 cm) (R); Pain 0/10; 22:41 BP 110 / 64; Pulse 62; Resp 16; Pulse Ox 99% on R/A; sf1 12/23 03:04 BP 109 / 67; Pulse 62; Resp 18; Pulse Ox 100% ; sf1 12/22 18:54 Body Mass Index 31.94 (103.87 kg, 180.34 cm) ag7 ED Course: 12/22 18:52 Patient arrived in ED. ll1 18:56 Torsten Linton PA is PHCP. jmm 18:56 Nando Wilson MD is Attending Physician. jmm 18:59 Triage completed. ag7 19:04 Arm band placed on right wrist. ag7 19:22 Alka Barbosa RN is Primary Nurse. sf1 19:22 No apparent distress. flat affect, crying at times. Awaiting lab results. Safety sf1 Checks: Personal items have been removed. patient was changed into paper scrubs and belongs were removed from the room. Patient is in eye view of the nurse and at this time is cooperative with care. Crying at times. Patient was provided something to drink and a sandwich. Patient was provided a warm blanket. The door is open or patient has been placed in a hallway bed/chair. Sitter not present at this time due to or because was not provided a sitter. 19:22 Patient is placed in psych hold. sf1 19:45 Inserted saline lock: 22 gauge in right antecubital area, using aseptic technique. ds4 Blood collected. 20:05 COVID-19 SARS RT PCR (Document "Date of Onset" if Symptomatic) Sent. sf1 20:05 Basic Metabolic Panel Sent. sf1 20:05 Acetaminophen Level Sent. sf1 20:05 Acetaminophen Sent. sf1 20:05 Basic Metabolic Panel Sent. sf1 20:05 ETOH Level Sent. sf1 20:06 Hepatic Function Sent. sf1 20:06 PT-INR Sent. sf1 20:06 Ptt, Activated Sent. sf1 20:06 Salicylate Sent. sf1 20:30 No apparent distress. Resting quietly. sf1 20:45 COVID-19 SARS RT PCR (Document "Date of Onset" if Symptomatic) Sent. sf1 21:00 Resting quietly. sf1 21:30 Called Steffanie at [facility] to request Mental Health Evaluation. lp1 22:00 Spoke with Alex with [facility], notified that patient had Mental health Evaluation lp1 yesterday, will send recommendation letter for Inpatient status. 22:30 Appears to be sleeping. sf1 22:41 Patient has correct armband on for positive identification. sf1 22:41 No provider procedures requiring assistance completed. sf1 23:15 Clinicals faxed to facilities at this time. lp1 23:28 Spoke with Bela at [facility], reports they will have bed for patient in the lp1 morning; will call back later in shift. 23:30 Appears to be sleeping. sf1 03 00:30 Appears to be sleeping. sf1 00:33 Provider on phone for Doc to Doc with [facility]. lp1 00:50 Nurse to Nurse report given to ARUN Nunez from [facility] by ARUN Rucker. lp1 01:00 Appears to be sleeping. sf1 02:00 Appears to be sleeping. sf1 03:08 No apparent distress. Resting quietly. sf1 03:08 IV discontinued, intact, bleeding controlled, No redness/swelling at site. Pressure sf1 dressing applied. Administered Medications: No medications were administered Outcome: 01:34 ER care complete, transfer ordered by . [facility] 03:50 Transferred by ground EMS to other acute care facility: [facility] . sf1 03:50 Condition: stable 03:51 Patient left the ED. sf1 Signatures: Torsten Linton PA PA jmm Pena, Laura, RN RN lp1 [place] ds4 Chuck Vu RN RN ll1 Alka Barbosa RN RN sf1 Brandy Grimaldo RN RN ag7
--- NOTE | 2021-12-23 01:35 | EDPHYS ---
Physician Documentation [facility] Name: Luis Fernando Silva Age: 21 yrs Sex: Male : 2000 Arrival Date: 12/22/2021 Time: 18:52 Bed 19 Private MD: ED Physician Nando Wilson HPI: 12/22 19:15 This 21 yrs old Male presents to ER via EMS with complaints of Suicidal Ideation. jmm 19:15 The patient presents to the emergency department with suicide ideation. Onset: The jmm symptoms/episode began/occurred acutely, 1 week(s) ago. Past psychiatric history: Prior diagnosis: Anxiety, Psychiatric medications include: none. This is a 21-year-old male with a history of anxiety, PTSD, depression the presents emerged part with complaints of suicidal ideation began approximately a week ago. Mostly around increased stress along his relationship with his mother. Patient has tried to kill himself in the past. Patient states his plan was to slit his wrist.. Historical: - Allergies: 18:59 No Known Allergies; ag7 - Home Meds: 18:59 None [Active]; ag7 - PMHx: 18:59 Anxiety; Depression; PTSD; ag7 - PSHx: 18:59 None; ag7 - Immunization history:: Adult Immunizations unknown, Client reports having NOT received the Covid vaccine. Flu vaccine status is unknown. - Social history:: Smoking status: Patient denies any tobacco usage or history of. Patient/guardian denies using alcohol, street drugs. ROS: 19:15 Constitutional: Negative for fever, chills, and weight loss, Cardiovascular: Negative jmm for chest pain, palpitations, and edema, Respiratory: Negative for shortness of breath, cough, wheezing, and pleuritic chest pain. 19:15 MS/Extremity: Negative for injury and deformity. 19:15 All other systems are negative. Exam: 19:15 Constitutional: This is a well developed, well nourished patient who is awake, alert, jmm and in no acute distress. Head/Face: atraumatic. Eyes: EOMI, no conjunctival erythema appreciated ENT: Moist Mucus Membranes Neck: Trachea midline, Supple Chest/axilla: Normal chest wall appearance and motion. Cardiovascular: Regular rate and rhythm. No edema appreciated Respiratory: Normal respirations, no respiratory distress appreciated Abdomen/GI: Non distended, soft Back: Normal ROM Skin: General appearance color normal MS/ Extremity: Moves all extremities, no obvious deformities appreciated, no edema noted to the lower extremities Neuro: Awake and alert 19:15 Psych: Behavior/mood is pleasant, cooperative, anxious, suicidal. Vital Signs: 18:54 BP 113 / 62 LA Sitting (man/reg); Pulse 65 MON; Resp 16 S; Temp 98.5(O); Pulse Ox 99% ag7 on R/A; Weight 103.87 kg; Height 5 ft. 11 in. (180.34 cm) (R); Pain 0/10; 22:41 BP 110 / 64; Pulse 62; Resp 16; Pulse Ox 99% on R/A; sf1 12/23 03:04 BP 109 / 67; Pulse 62; Resp 18; Pulse Ox 100% ; 1 12/22 18:54 Body Mass Index 31.94 (103.87 kg, 180.34 cm) ag7 MDM: 12/22 19:15 Patient medically screened. [facility] 12/23 01:32 Data reviewed: vital signs, nurses notes. Counseling: I had a detailed discussion with redd the patient and/or guardian regarding: the historical points, exam findings, and any diagnostic results supporting the discharge/admit diagnosis, lab results, the need for further work-up and treatment in the hospital. ED course: I discussed the patient with Dr. Smith whom accepted the patient for transfer. . 12/22 19:29 Order name: Acetaminophen [facility] 12/22 19:29 Order name: Basic Metabolic Panel [facility] 12/22 19:29 Order name: CBC with Diff; Complete Time: 20:08 [facility] 12/22 19:29 Order name: ETOH Level; Complete Time: 20:26 [facility] 12/22 19:29 Order name: Hepatic Function; Complete Time: 20:58 [facility] 12/22 19:29 Order name: PT-INR; Complete Time: 20:08 [facility] 12/22 19:29 Order name: Ptt, Activated; Complete Time: 20:08 [facility] 12/22 19:29 Order name: Salicylate; Complete Time: 21:23 [facility] 12/22 19:29 Order name: Urine Drug Screen; Complete Time: 22:05 [facility] 12/22 19:29 Order name: EKG; Complete Time: 19:30 [facility] 12/22 19:30 Order name: Acetaminophen Level; Complete Time: 20:58 [facility] 12/22 19:30 Order name: Basic Metabolic Panel; Complete Time: 20:58 [facility] 12/22 19:57 Order name: COVID-19 SARS RT PCR (Document "Date of Onset" if Symptomatic); Complete sf1 Time: 21:05 12/22 21:40 Order name: Urine Dipstick-Ancillary; Complete Time: 21:47 [facility] 12/22 19:29 Order name: EKG - Nurse/Tech; Complete Time: 20:46 [facility] 12/22 19:29 Order name: IV Saline Lock; Complete Time: 20:01 [facility] 12/22 19:29 Order name: Labs collected and sent; Complete Time: 20:01 [facility] 12/22 19:29 Order name: Suicide Screening ([place]); Complete Time: 19:57 [facility] 12/22 19:29 Order name: Urine Dipstick-Ancillary (obtain specimen); Complete Time: 23:02 [facility] Administered Medications: No medications were administered Disposition Summary: 12/23/21 01:34 Transfer Ordered Transfer Location: [facility] Reason: Higher level of care jm Condition: Stable jm Problem: an acute exacerbation jmm Symptoms: are unchanged [facility] Accepting Physician: Dr. Smith(12/23/21 03:51) sf1 Diagnosis - Suicidal ideations [facility] Forms: - Medication Reconciliation Form jm - SBAR form [facility] Signatures: Dispatcher [employer] EDNando Elizondo MD MD cha Mickail, Joel, PA PA [facility] Alka Barbosa RN RN sf1 Brandy Grimaldo RN RN ag7 Corrections: (The following items were deleted from the chart) 03:51 01:34 Dr. Sarah holtm sf1
[2021-12-23 04:03] VITALS: TEMP 98.5
[2021-12-23 04:06] VITALS: BP 109/67; O2SAT 100
== END 2021-12-23 03:51 ==
LOC: ER 18:44
DX: R45.851 Suicidal ideations (principal); F43.10 Post-traumatic stress disorder, unspecified; Z20.822 Contact with and (suspected) exposure to COVID-19
CPT/HCPCS: 93005; 85025; 80048; 36415; 80320; 80329 ×2; 85610; 80076; 85730; 81003; 80307; 99285; U0003

== ENCOUNTER 2022-01-20 17:03 | Emergency (ER) | payer OTHER ==
--- OUTSIDE RECORDS SUMMARY | 2022-01-20 17:06 | XMS REPORT | Continuity of Care Document ---
:2000 Author Organization [facility] t Address [address] [place] [address] Care Team Providers Name Role Phone Karoline CLEMONS, Theodora Attending Clinician Doctor Unassigned, Name Attending Clinician Unavailable Robert Mathews MD Attending Clinician Lab, Fam Pob I Attending Clinician Unavailable ROBERT MATHEWS Attending Clinician Unavailable Payers Payer Name Policy Type Policy Number Effective Date Expiration Date [place] [facility] [id number] 2017 HEALTH 00:00:[address] [facility] STAR [id number] 2021 00:00:00 Problems Condition Condition Condition Status Onset Resolution Last Treating Co mments Source Name Details Category Date Date Treatment Clinician Date BMI (body BMI (body Disease Active Uni vers mass mass -09 ity of index), index), 00:00: [place] pediatric, pediatric, 00 Me dical [facility] than or than or equal to equal to 95% for 95% for age age H/O H/O Disease Active Univers self-harm self-harm - ity of 00:00: [place] 00 Medical Branch Depression Depression Disease Active U nivers - ity of 00:00: [place] 00 Medical Branch Other Other Disease Active Univers malaise malaise 6-23 ity of and and 00:00: [place] fatigue fatigue 00 Medical Branch Anxiety Anxiety Disease Active Univers ity of [place] [facility] Allergies, Adverse Reactions, Alerts Allergy Allergy Status Severity Reaction(s) Onset Inactive Treating Comm ents Source Name Type Date Date Clinician NO KNOWN Drug Active Univers ALLERGIE Class ity of S [facility] Social History Social Habit Start Date Stop Date Quantity Comments Source Exposure to Not sure University SARS-CoV-2 [facility] (event) Branch Tobacco use and 2021-05-18 2021-05-18 Never used Universit y of exposure 00:00:00 00:00:00 [facility] Alcohol intake 2021-05-18 2021-05-18 Current University of 00:00:00 00:00:00 non-drinker of [facility] alcohol Branch (finding) Tobacco Comment 2014-04-03 2014-04-03 mother smokes Univer sity of 00:00:00 00:00:00 outside of house [facility] dical [place] Sex Assigned At [birth year] Universit y of 00:00:00 00:00:00 [facility] Smoking Status Start Date Stop Date Source Never smoker [facility] Medical Branch Medications Ordered Filled Start Stop [...] 00 :00 Medical Branch omeprazole 2016-10- No [id number] 40mg Take 1 U nivers 40 mg 12-09 capsule by ity of capsule 00:00: 00:00 mouth [place] 00 :00 daily. Medical Branch omeprazole 2016-10- No [id number] 40mg Take 1 U nivers 40 mg 12-09 capsule by ity of capsule 00:00: 00:00 mouth [place] 00 :00 daily. Medical Branch buPROPion 2016-10- No [id number] TAKE 1 Un sara XL 300 mg 212-10 TABLET BY ity of 24 hr 00:00: 00:00 MOUTH [place] tablet 00 :00 EVERY Medical MORNING [place] hydrOXYzine 2016-10- No [id number] TAKE 1 Univers 100 mg 2- TABLET BY ity of capsule 00:00: 00:00 MOUTH [place] 00 :00 EVERY Medical EVENING AT [facility] hydrOXYzine 2016-10- No [id number] TAKE 1 Univers 50 mg 11-18 TABLET BY ity of capsule 00:00: 00:00 MOUTH [place] 00 :00 EVERY Medical MORNING AT [place] 8AM AND AGAIN AT [facility] naltrexone 2016-10- No [id number] TAKE 1 U nivers 50 mg 11-18 TABLET BY ity of tablet 00:00: 00:00 MOUTH [place] 00 :00 EVERY Medical EVENING AT [facility] buPROPion 2016-10- No [id number] TAKE 1 Un sara XL 300 mg 11-18 TABLET BY ity of 24 hr 00:00: 00:00 MOUTH [place] tablet 00 :00 EVERY Medical MORNING [place] hydrOXYzine 2016-10- No [id number] TAKE 1 Univers 100 mg 11-18- TABLET BY ity of capsule 00:00: 00:00 MOUTH [place] 00 :00 EVERY Medical EVENING AT [facility] hydrOXYzine 2016-10- No [id number] TAKE 1 Univers 50 mg 11-18- TABLET BY ity of capsule 00:00: 00:00 MOUTH [place] 00 :00 EVERY Medical MORNING AT [place] 8AM AND AGAIN AT [facility] naltrexone 2016-10- No [id number] TAKE 1 U nivers 50 mg 11-18 TABLET BY ity of tablet 00:00: 00:00 MOUTH [place] 00 :00 EVERY Medical EVENING AT [facility] Immunizations Ordered Immunization Filled Immunization Date Status Commen ts Source Name Name Meningococcal 2017-10-20 Completed University of Polysaccharide 00:00:00 [place] Medi logan (groups A, C, Y and Branc h W-135) conjugate vaccine (MCV4P) Meningococcal 2017-10-20 Completed University of Polysaccharide 00:00:00 [place] Medi logan (groups A, C, Y and Branc h W-135) conjugate vaccine (MCV4P) Meningococcal 2017-10-20 Completed University of Polysaccharide 00:00:00 [place] Medi logan (groups A, C, Y and [...] Meningococcal 2017-10-20 Completed University of Polysaccharide 00:00:00 [place] Medi logan (groups A, C, Y and Branc h W-135) conjugate vaccine (MCV4P) Influenza Virus 2015-08-24 Completed Universit y of Vaccine Quad Nasal 00:00:00 [facility] Influenza Virus 2015-08-24 Completed Universit y of Vaccine Quad Nasal 00:00:00 [facility] Influenza Virus 2015-08-24 Completed Universit y of Vaccine [place] Nasal 00:00:00 [facility] Influenza Virus 2015-08-24 Completed Universit y of Vaccine Quad Nasal 00:00:00 [facility] Influenza Virus 2015-08-24 Completed Universit y of Vaccine [place] Nasal 00:00:00 [facility] Influenza Virus 2015-08-24 Completed Universit y of Vaccine Quad Nasal 00:00:00 [facility] Influenza Virus 2015-08-24 Completed Universit y of Vaccine [place] Nasal 00:00:00 [facility] HEPATITIS A 2006-01-14 Completed University of 00:00:00 [facility] HEPATITIS A 2006-01-14 Completed University of 00:00:00 [facility] HEPATITIS A 2006-01-14 Completed University of 00:00:00 [facility] HEPATITIS A 2006-01-14 Completed University of 00:00:00 [facility] HEPATITIS A 2006-01-14 Completed University of 00:00:00 [facility] HEPATITIS A 2006-01-14 Completed University of 00:00:00 [facility] HEPATITIS A 2006-01-14 Completed University of 00:00:00 [facility] Vital Signs Vital Name Observation Time Observation Value Comments Source Systolic blood 2021-05-27 07:34:00 124 mm[Hg] Univer sity of pressure [place] [facility] Diastolic blood 2021-05-27 07:34:00 73 mm[Hg] Unive rsity of pressure [place] [facility] Heart rate 2021-05-27 07:34:00 79 /min Universi ty of [place] [facility] Body temperature 2021-05-27 07:34:00 36.56 Bridget Univ ersity of [place] [facility] Respiratory rate 2021-05-27 07:34:00 20 /min Univ ersity of [place] [facility] Body weight 2021-05-27 07:34:00 128.368 kg Universi ty of [place] [facility] BMI 2021-05-27 07:34:00 39.47 kg/m2 Universi ty of [place] [facility] Oxygen saturation in 2021-05-27 07:34:00 100 /min University of Arterial blood by [facility] Pulse oximetry Branch Systolic blood 2021-05-19 01:00:00 111 mm[Hg] Univer sity of pressure [place] [facility] Diastolic blood 2021-05-19 01:00:00 61 mm[Hg] Unive rsity of pressure [place] [facility] Heart rate 2021-05-19 01:00:00 80 /min Universi ty of [place] [facility] Respiratory rate 2021-05-19 01:00:00 15 /min Univ ersity of [place] [facility] Body temperature 2021-05-19 00:27:00 36.72 Bridget Univ ersity of [place] [facility] Body height 2021-05-19 00:27:00 180.3 cm Universi ty of [place] [facility] Oxygen saturation in 2021-05-19 00:27:00 96 /min University of Arterial blood by [facility] Pulse oximetry Branch Systolic blood 2020-12-10 20:46:00 112 mm[Hg] Univer sity of pressure [place] [facility] Diastolic blood 2020-12-10 20:46:00 60 mm[Hg] Unive rsity of pressure [place] [facility] Heart rate 2020-12-10 20:46:00 79 /min Universi ty of [place] [facility] Body temperature 2020-12-10 20:46:00 35.72 Bridget Univ ersity of [place] [facility] Body height 2020-12-10 20:46:00 180.3 cm Universi ty of [place] [facility] Body weight 2020-12-10 20:46:00 128.368 kg Universi ty [facility] BMI 2020-12-10 20:46:00 39.47 kg/m2 Universi ty [facility] [place] [facility] Branch Systolic blood 2020-12-10 20:46:00 112 mm[Hg] Univer sity of pressure [facility] Diastolic blood 2020-12-10 20:46:00 60 mm[Hg] Unive rsity of pressure [facility] Heart rate 2020-12-10 20:46:00 79 /min Universi ty [facility] Body temperature 2020-12-10 20:46:00 35.72 Bridget Univ ersity of [facility] Body height 2020-12-10 20:46:00 180.3 cm Universi ty of [facility] Body weight 2020-12-10 20:46:00 128.368 kg Universi ty [facility] BMI 2020-12-10 20:46:00 39.47 kg/m2 Universi [facility] Procedures Procedure Date / Time Performed Performing Clinician [facility] NOTICE OF PRIVACY 2021-05-27 07:28:30 Doctor Unassigned, No Univ [facility] PRACTICES Name Medical Branch CONSENT/REFUSAL FOR 2021-05-27 07:28:11 Doctor Unassigned, No Un [facility] DIAGNOSIS AND Name Medical Branch TREATMENT MO RESUP NPTERF WND 2021-05-19 02:04:00 Alexia Ramey [facility] ity of [place] BODY 2.6-7.5 CM Medical [place] Encounters Start End Encounter Admission Attending Care Care Encounter Source Date/Time Date/Time Type Type Clinicians Facility Department ID 2021-08-12 Emergency [facility] [id number] Univers 15:40:37 ity of [facility] 2021-08-12 Emergency [facility] [id number] Univers 13:52:37 ity of [facility] 2021-05-27 2021-05-27 Emergency Karoline [facility] [id number] Univers 02:37:00 04:07:00 Alexia Zamora [id number] ity of [place] [id number] [facility] [id number] [facility] 084 Branch 2021-05-27 2021-05-27 Orders Doctor DK [id number] Univers 00:00:00 00:00:00 Only Unassigned, ANDRÉS [id number] ity of [place] [facility] [id number] Theodore as [phone] [facility] 009 Branch 2021-05-18 2021-05-18 Emergency formerly [facility] [id number] Univers 19:21:00 20:53:00 Alexia Zamora [id number] ity of [id number] [place] [id number] [facility] 084 [place] 2020-12-12 2020-12-12 Telephone [facility] [id number] 00:00:00 00:00:00 [facility] [id number] Edward [place] [id number] Professio [phone] [place] [address] [address] One 2020-12-12 2020-12-12 Telephone [facility] [id number] [facility] 00:00:00 00:00:00 [facility] [id number] it y of [place] [id number] Theodore as Professio [phone] [address] Office [facility] One 2020-12-10 2020-12-10 Typing Checker Lab, [facility] [id number] 15:06:40 15:26:40 [facility] [id number] [place] [id number] Professio [id number] [place] [address] Office Building One 2020-12-10 2020-12-10 Typing Checker Lab, [facility] I [facility] [id number] Univers 15:06:40 15:26:40 Visit ReidBenson justino [facility] [id number] ity of [place] [id number] Theodore as Professio [phone] [address] Office Building One 2020-12-10 2020-12-10 Office [facility] [id number] 14:36:00 15:06:00 Visit [facility] [id number] Robert Zamora [id number] Professio [phone] [place] [address] Office Building One 2020-12-10 2020-12-10 Office [facility] [id number] Univers 14:36:00 15:06:00 Visit [facility] [id number] it y of Robert Zamora [id number] Theodore as Professio [phone] Me dical [facility] 044 [place] Office [facility] One 2020-12-10 2020-12-10 Outpatient [facility] [id number] Univers 14:30:00 14:30:00 BENSON [id number] [facility] 2020-12-10 2020-12-10 [facility]patient [facility] [id number] Univers 14:30:00 14:30:00 [facility] Results Test Description Test Test Results Result Source Time Comments Comments Laceration 2021-05- Alexia Ramey MD ? Un iversity of Repair 08 ? 05/18/2021 ?9:04 [facility] dical 02:04:00 [facility] RepairPerformed by: Alexia Ramey [facility] [...]
[2022-01-20 19:08] LABS: SARS-COV-2 RT PCR NEGATIVE (NEGATIVE)
[2022-01-20 20:23] LABS: Lymphocytes % 16.4 % (15.3-44.8); MPV 8.7 fL (7.6-11.3); RBC Red Blood Cell Count 4.82 M/uL (4.33-5.43)
--- NOTE | 2022-01-20 20:32 | RAD REPORT ---
EXAM DESCRIPTION: CTAbdomen Pelvis W Contrast - 01/20/2022 8:26 pm CLINICAL HISTORY: Abdominal pain. ABD PAIN COMPARISON: No comparisons TECHNIQUE: Biphasic CT imaging of the abdomen and pelvis was performed with 100 ml non-ionic IV cont rast. All CT scans are performed using dose optimization technique as appropriate and may include automated exposure control or mA/KV adjustment according to patient size. FINDINGS: The lung bases are clear. The liver, spleen, pancreas, adrenal glands and kidneys are within normal limits. No bowel obstruction, free air, free fluid or abscess. Mildly distended fluid-filled small bowel and colonic loops noted. The appendix is normal. No evidence of significant lymphadenopathy. No suspicious bony findings. IMPRESSION: Fluid-filled and mildly distended colon and small bowel probably indicates an enteritis/ colitis or ileus pattern.
[2022-01-20 20:38] LABS: ALT/SGPT 24 U/L (12-78); AST/SGOT 21 U/L (15-37); Albumin 3.8 g/dL (3.4-5.0); Alkaline Phosphatase 86 U/L (45-117); BUN Blood Urea Nitrogen 14 mg/dL (7-18); Bicarbonate 22 mmol/L (21-32); Bilirubin Total 0.4 mg/dL (0.2-1.0); Glucose Level 101 mg/dL (74-106); Lipase 95 U/L (73-393); Potassium 3.4 mmol/L (3.5-5.1); Protein, Total 8.7 g/dL (6.4-8.2); Sodium Level 139 mmol/L (136-145)
[2022-01-20 20:41] LABS: Urine Blood Negative (Negative); Urine Glucose Negative (Negative); Urine Protein 1+ (Negative); Urine Specific Gravity >=1.030 (1.005-1.030)
[2022-01-20] MEDS ORDERED: MORPHINE 2 MG/ML SYR ONE (20:47)
[2022-01-20] MEDS ORDERED: NA CHLORIDE 0.9% 1,000 ML ONE (20:48)
[2022-01-20] MEDS ORDERED: ONDANSETRON 4 MG/2 ML VIAL ONE (20:48)
[2022-01-20] MEDS ORDERED: FAMOTIDINE 20 MG/2 ML VIAL IV ONE (20:48)
[2022-01-20 20:57] LABS: Urine Bacteria <20 /HPF (NONE SEEN); Urine RBC <5 /HPF (NONE SEEN)
[2022-01-20 20:58] LABS: Calcium Oxalate Crystals- Ur MODERATE (NONE SEEN); Urine Mucus HEAVY /HPF (NONE SEEN)
[2022-01-20] MEDS ORDERED: POTASSIUM 25 MEQ EFFERV TAB ONE (21:32)
--- NOTE | 2022-01-20 21:52 | EDPHYS ---
Physician Documentation [facility] Name: Luis Fernando Silva Age: 21 yrs Sex: Male : 2000 Arrival Date: 01/20/2022 Time: 17:05 Bed 11 Private MD: ED Physician Jason Henao HPI: 01/20 20:00 This 21 yrs old Male presents to ER via Ambulatory with complaints of Abdominal Pain, cp Vomiting/Diarrhea, Headache. 20:00 The patient presents with abdominal pain in the upper abdomen. Onset: The cp symptoms/episode began/occurred 2 day(s) ago. Associated signs and symptoms: Pertinent positives: nausea, vomiting, and diarrhea, Pertinent negatives: constipation, fever, testicular pain. The symptoms are described as constant. Historical: - Allergies: 17:26 No Known Allergies; jd3 - Home Meds: 17:26 None [Active]; jd3 - PMHx: 17:26 Anxiety; Depression; PTSD; jd3 - PSHx: 17:26 None; jd3 - Immunization history:: Adult Immunizations up to date, Client reports having NOT received the Covid vaccine. Flu vaccine is up to date. - Social history:: Smoking status: Patient denies any tobacco usage or history of. ROS: 20:05 Constitutional: Negative for body aches, chills, fever. cp 20:05 Eyes: Negative for injury, pain, redness, and discharge. cp 20:05 Respiratory: Negative for cough, shortness of breath, wheezing. 20:05 Abdomen/GI: Positive for abdominal pain, nausea, vomiting, and diarrhea, Negative for constipation. Exam: 20:10 Constitutional: The patient appears in no acute distress, alert, awake, non-toxic, well cp developed, well nourished, uncomfortable. 20:10 Head/Face: Normocephalic, atraumatic. cp 20:10 Eyes: Periorbital structures: appear normal, Conjunctiva: normal, no exudate, no injection, Sclera: no appreciated abnormality, Lids and lashes: appear normal, bilaterally. 20:10 ENT: External ear(s): are unremarkable, Nose: is normal, Mouth: Lips: moist, Oral mucosa: pink and intact, moist, Posterior pharynx: Airway: no evidence of obstruction, patent. 20:10 Chest/axilla: Inspection: normal. 20:10 Cardiovascular: Rate: normal, Rhythm: regular. 20:10 Respiratory: the patient does not display signs of respiratory distress, Respirations: normal, no use of accessory muscles, no retractions, labored breathing, is not present, Breath sounds: are clear throughout, no decreased breath sounds, no stridor, no wheezing. 20:10 Abdomen/GI: Inspection: abdomen appears normal, Bowel sounds: active, all quadrants, Palpation: soft, in all quadrants, mild abdominal tenderness, in the right upper quadrant and left upper quadrant, rebound tenderness, is not appreciated, voluntary guarding, is not appreciated, involuntary guarding, is not appreciated. 20:10 Back: CVA tenderness, is absent. Vital Signs: 17:26 BP 114 / 87; Pulse 93; Resp 18 S; Temp 97.0(TE); Pulse Ox 100% on R/A; Weight 105.23 kg jd3 (R); Height 5 ft. 11 in. (180.34 cm) (R); Pain 8/10; 20:53 BP 111 / 70; Pulse 87; Resp 18 S; Pulse Ox 99% on R/A; as6 22:10 BP 110 / 61; Pulse 82; Resp 16 S; Pulse Ox 97% on R/A; as6 17:26 Body Mass Index 32.36 (105.23 kg, 180.34 cm) jd3 MDM: 19:49 Patient medically screened. cp 20:00 Differential diagnosis: appendicitis, bowel obstruction, cholecystitis, Cholelithiasis, cp diverticulitis, gastritis, non-specific abd pain, pancreatitis, Peptic Ulcer Disease, Pyelonephritis, Ureterolithiasis, urinary tract infection. 21:50 Data reviewed: vital signs, nurses notes, lab test result(s), radiologic studies, CT cp scan. 21:50 Counseling: I had a detailed discussion with the patient and/or guardian regarding: the cp historical points, exam findings, and any diagnostic results supporting the discharge/admit diagnosis, lab results, radiology results, the need for outpatient follow up, a button bradder, to return to the emergency department if symptoms worsen or persist or if there are any questions or concerns that arise at home. Response to treatment: the patient's symptoms have markedly improved after treatment, VSS. Nausea and pain markedly improved. Vomiting resolved. Patient appears non-toxic. Will discharge to home for continued monitoring. 01/20 17:28 Order name: COVID-19/FLU A+B (Document "Date of Onset" if Symptomatic); Complete Time: jd3 20:55 01/20 19:53 Order name: CBC with Diff; Complete Time: 20:55 cp 01/20 20:55 Interpretation: Normal except: MN% 13.7. cp 01/20 19:53 Order name: CMP; Complete Time: 20:55 cp 01/20 20:55 Interpretation: Normal except: K 3.4; CL 109; TP 8.7; A/G 0.8; GLOB 4.9. cp 01/20 19:53 Order name: Lipase; Complete Time: 20:55 cp 01/20 19:53 Order name: Urine Microscopic Only; Complete Time: 21:22 cp 01/20 21:22 Interpretation: Reviewed. cp 01/20 20:41 Order name: Urine Dipstick-Ancillary; Complete Time: 20:55 EDMS 01/20 19:53 Order name: CT Abd/Pelvis - IV Contrast Only; Complete Time: 20:55 cp 01/20 19:53 Order name: IV Saline Lock; Complete Time: 20:13 cp 01/20 19:53 Order name: Labs collected and sent; Complete Time: 20:13 cp 01/20 19:53 Order name: Urine Dipstick-Ancillary (obtain specimen); Complete Time: 20:40 cp Administered Medications: 20:52 Drug: morphine 2 mg Route: IVP; Site: left antecubital; as6 22:08 Follow up: Response: No adverse reaction; RASS: Alert and Calm (0) as6 20:53 Drug: NS 0.9% 1000 ml Route: IV; Rate: 1 bolus; Site: left antecubital; as6 22:08 Follow up: Response: No adverse reaction; IV Status: Completed infusion; IV Intake: as6 1000ml 20:53 Drug: Pepcid (famotidine) 20 mg Route: IVP; Site: left antecubital; as6 22:08 Follow up: Response: No adverse reaction as6 20:53 Drug: Zofran (Ondansetron) 4 mg Route: IVP; Site: left antecubital; as6 22:08 Follow up: Response: No adverse reaction as6 21:35 Drug: Potassium Effervescent Tablet 50 mEq Route: PO; 6 22:09 Follow up: Response: No adverse reaction as6 22:04 Drug: Ciprofloxacin 500 mg Route: PO; as6 22:09 Follow up: Response: No adverse reaction as6 22:04 Drug: Bentyl (dicyclomine) 20 mg Route: PO; as6 22:09 Follow up: Response: No adverse reaction as6 22:04 Drug: metroNIDAZOLE 500 mg Route: PO; as6 22:09 Follow up: Response: No adverse reaction as6 Disposition Summary: 01/20/22 21:51 Discharge Ordered Location: Home cp Problem: new cp Symptoms: have improved cp Condition: Stable cp Diagnosis - Diarrhea, unspecified cp - Nausea with vomiting, unspecified cp Followup: cp - With: Robbi Zee MD - When: 1 - 2 days - Reason: Recheck today's complaints Discharge Instructions: - Discharge Summary Sheet cp - Food Choices to Help Relieve Diarrhea, Adult cp - Diarrhea, Adult cp - Nausea and Vomiting, Adult cp Forms: - Medication Reconciliation Form cp - Thank You Letter cp - Antibiotic Education cp - Prescription Opioid Use cp - Work release form as6 Prescriptions: - Zofran 4 mg Oral Tablet - take 1 tablet by ORAL route every 12 hours As needed; 20 tablet; Refills: 0, cp Product Selection Permitted - Cipro 500 mg Oral Tablet - take 1 tablet by ORAL route every 12 hours for 10 days; 20 tablet; Refills: 0, cp Product Selection Permitted - Metronidazole 500 mg Oral Tablet - take 1 tablet by ORAL route every 8 hours; 30 tablet; Refills: 0, Product cp Selection Permitted - dicyclomine 20 mg Oral Tablet - take 1 tablet by ORAL route 4 times per day; 30 tablet; Refills: 0, Product cp Selection Permitted Signatures: Dispatcher [employer] EDOH Nando Orta PA PA cp Marcus Faulkner RN RN jStepan Davis RN RN as6 Corrections: (The following items were deleted from the chart) 20:55 20:55 Normal except: K 3.4; CL 109; TP 8.7. cp cp
--- NOTE | 2022-01-20 21:52 | ER ---
Nurse's Notes [facility] Name: Luis Fernando Silva Age: 21 yrs Sex: Male : 2000 Arrival Date: 01/20/2022 Time: 17:05 Bed 11 Private MD: Diagnosis: Diarrhea, unspecified;Nausea with vomiting, unspecified Presentation: 01/20 17:24 Chief complaint: Patient states: "For the past 2 days I have been having Nausea and jd3 vomiting for 2 days now and diarrhea.". Coronavirus screen: At this time, the client does not indicate any symptoms associated with coronavirus-19. Ebola Screen: No symptoms or risks identified at this time. Initial Sepsis Screen: Does the patient meet any 2 criteria? No. Patient's initial sepsis screen is negative. Does the patient have a suspected source of infection? No. Patient's initial sepsis screen is negative. Risk Assessment: Do you want to hurt yourself or someone else? Patient reports no desire to harm self or others. Onset of symptoms was January 17, 2022. 17:24 Method Of Arrival: Ambulatory jd3 17:24 Acuity: LALIT 3 jd3 Historical: - Allergies: 17:26 No Known Allergies; jd3 - Home Meds: 17:26 None [Active]; jd3 - PMHx: 17:26 Anxiety; Depression; PTSD; jd3 - PSHx: 17:26 None; jd3 - Immunization history:: Adult Immunizations up to date, Client reports having NOT received the Covid vaccine. Flu vaccine is up to date. - Social history:: Smoking status: Patient denies any tobacco usage or history of. Screenin:14 Abuse screen: Denies threats or abuse. Denies injuries from another. Nutritional as6 screening: No deficits noted. Tuberculosis screening: No symptoms or risk factors identified. Fall Risk None identified. Assessment: 20:13 General: Appears in no apparent distress. Behavior is calm, cooperative. Pain: as6 Complains of pain in abdomen Quality of pain is described as sharp. Neuro: Level of Consciousness is awake, alert, obeys commands, Oriented to person, place, time, situation. Cardiovascular: Capillary refill < 3 seconds Patient's skin is warm and dry. Respiratory: Airway is patent Trachea midline Respiratory effort is even, unlabored, Respiratory pattern is regular, symmetrical. GI: Bowel sounds present X 4 quads. Abd is soft Reports upper abdominal pain, diarrhea, nausea, vomiting. Vital Signs: 17:26 BP 114 / 87; Pulse 93; Resp 18 S; Temp 97.0(TE); Pulse Ox 100% on R/A; Weight 105.23 kg jd3 (R); Height 5 ft. 11 in. (180.34 cm) (R); Pain 8/10; 20:53 BP 111 / 70; Pulse 87; Resp 18 S; Pulse Ox 99% on R/A; as6 22:10 BP 110 / 61; Pulse 82; Resp 16 S; Pulse Ox 97% on R/A; as6 17:26 Body Mass Index 32.36 (105.23 kg, 180.34 cm) jd3 ED Course: 17:05 Patient arrived in ED. mr 17:26 Triage completed. jd3 17:27 Arm band placed on. jd3 17:32 Nando Orta PA is PHCP. cp 17:32 Jason Henao MD is Attending Physician. cp 19:55 Stepan Paige, ARUN is Primary Nurse. as6 20:08 Inserted saline lock: 22 gauge in left antecubital area, using aseptic technique. Blood as6 collected. 20:13 Lipase Sent. as6 20:13 CMP Sent. as6 20:13 CBC with Diff Sent. as6 20:28 CT Abd/Pelvis - IV Contrast Only In Process Unspecified. EDMS 20:40 Urine Microscopic Only Sent. as6 21:50 Robbi Zee MD is Referral Physician. cp 22:09 No provider procedures requiring assistance completed. IV discontinued, intact, as6 bleeding controlled, No redness/swelling at site. Pressure dressing applied. 22:10 Bed in low position. Call light in reach. Pulse ox on. NIBP on. as6 Administered Medications: 20:52 Drug: morphine 2 mg Route: IVP; Site: left antecubital; as6 22:08 Follow up: Response: No adverse reaction; RASS: Alert and Calm (0) as6 20:53 Drug: NS 0.9% 1000 ml Route: IV; Rate: 1 bolus; Site: left antecubital; as6 22:08 Follow up: Response: No adverse reaction; IV Status: Completed infusion; IV Intake: as6 1000ml 20:53 Drug: Pepcid (famotidine) 20 mg Route: IVP; Site: left antecubital; as6 22:08 Follow up: Response: No adverse reaction as6 20:53 Drug: Zofran (Ondansetron) 4 mg Route: IVP; Site: left antecubital; as6 22:08 Follow up: Response: No adverse reaction as6 21:35 Drug: Potassium Effervescent Tablet 50 mEq Route: PO; as6 22:09 Follow up: Response: No adverse reaction as6 22:04 Drug: Ciprofloxacin 500 mg Route: PO; as6 22:09 Follow up: Response: No adverse reaction as6 22:04 Drug: Bentyl (dicyclomine) 20 mg Route: PO; as6 22:09 Follow up: Response: No adverse reaction as6 22:04 Drug: metroNIDAZOLE 500 mg Route: PO; as6 22:09 Follow up: Response: No adverse reaction as6 Intake: 22:08 IV: 1000ml; Total: 1000ml. as6 Outcome: 21:51 Discharge ordered by MD. prasanna 22:09 Discharged to home ambulatory. as6 22:09 Condition: stable 22:09 Discharge instructions given to patient, Instructed on discharge instructions, follow up and referral plans. medication usage, Demonstrated understanding of instructions, follow-up care, medications, Prescriptions given X 4. 22:10 Patient left the ED. as6 Signatures: Dispatcher [employer] Krystal Coombs Corey, PA PA cp Davies, Jonathon, RN RN jStepan Davis RN RN as6
[2022-01-20] MEDS ORDERED: CIPROFLOXACIN HCL 500 MG TAB ONE (21:59)
[2022-01-20] MEDS ORDERED: metroNIDAZOLE 500 MG TABLET ONE (21:59)
[2022-01-20] MEDS ORDERED: DICYCLOMINE HCL 10 MG CAP ONE (22:00)
[2022-01-21 06:53] VITALS: TEMP 97
[2022-01-21 06:56] VITALS: BP 110/61; O2SAT 97
== END 2022-01-20 22:10 | disposition home or self-care (01) ==
LOC: ER 17:03
DX: R19.7 Diarrhea, unspecified (principal); R11.2 Nausea with vomiting, unspecified; Z20.822 Contact with and (suspected) exposure to COVID-19; F41.8 Other specified anxiety disorders
CPT/HCPCS: 85025; 36415; 83690; 80053; 0240U; 74177; Q9967; J2270; J7030; J2405; 81003; 81015; 96361; 96374; 96375; 99284

== ENCOUNTER 2023-03-04 20:38 | Emergency (ER) | payer OTHER ==
--- OUTSIDE RECORDS SUMMARY | 2023-03-04 20:41 | XMS REPORT | Continuity of Care Document ---
:2000 Author Organization [facility] t Address [address] [place] [address] [place] [address] Care Team Providers Name Role Phone Louann Vásquez MD Attending Clinician LOUANN VÁSQUEZ Attending Clinician Unavailable Alexia Ramey MD Attending Clinician Doctor Unassigned, [employer] Attending Clinician Unavailable Benson Mathews MD Attending Clinician Lab, Adc Fam Pob I Attending Clinician Unavailable BENSON MATHEWS Attending Clinician Unavailable Payers Payer Name Policy Type Policy Number Effective Date Expiration Date Theodora ZUÑIGAS [id number] 2017 HEALTH 00:00:00 [facility] STAR [id number] 2021 00:00:00 Problems Condition Condition Condition Status Onset Resolution Last Treating Co mments Source Name Details Category Date Date Treatment Clinician Date BMI (body BMI (body Disease Active Uni vers mass mass - ity of index), index), 00:00: [place] pediatric, pediatric, 00 Me dical greater greater Branch than or than or equal to equal to 95% for 95% for age age H/O H/O Disease Active Univers self-harm self-harm - ity of 00:00: [place] [address] Medical Branch Depression Depression Disease Active U nivers 10-20 ity of 00:00: [place] [address] Medical Branch Other Other Disease Active Univers malaise malaise - ity of and and 00:00: [place] fatigue fatigue 00 Medical Branch Anxiety Anxiety Disease Active Univers [facility] Allergies, Adverse Reactions, Alerts Allergy Allergy Status Severity Reaction(s) Onset Inactive Treating Comm ents Source Name Type Date Date Clinician NO KNOWN Drug Active Univers ALLERGIE Class [facility] NO KNOWN Allergy Active [facility] [place] Social History Social Habit Start Date Stop Date Quantity Comments Source Exposure to Not sure University SARS-CoV-2 [facility] (event) Branch Alcohol intake 2022-03-22 2022-03-22 [facility] of [facility] (finding) Tobacco use and 2022-03-22 2022-03-22 Smokeless tobacco [facility] exposure 00:00:00 00:00:00 non-user [facility] Tobacco Comment 2014-04-03 2014-04-03 mother smokes Univer sity of 00:00:00 00:00:00 outside of house [facility] Assigned At 2000 2000 [facility] 00:00:00 00:00:00 [facility] Smoking Status Start Date Stop Date Source Never smoked tobacco [facility] Medications Ordered Filled Start Stop Current Ordering Indication Dosage Frequency Signature Comments Components Source Medication Medication Date Date Medication? Clinician (SIG) Name Name ketorolac 2021- No 10mg Take 1 [facility] (TORADOL) 03-22 tablet (10 [place] 10 mg 00:00: 23:59 mg total) Medica l tablet 00 :00 by mouth Center every 6 (six) hours as needed for Pain for up to 5 days. ketorolac 2021- No 10mg Take 1 [facility] (TORADOL) 03-22 tablet (10 [place] 10 mg 00:00: 23:59 mg total) Medica l tablet 00 :00 by mouth Center every 6 (six) hours as needed for Pain for up to 5 days. ketorolac 2021- No 10mg Take 1 [facility] (TORADOL) 03-22 tablet (10 [place] 10 mg 00:00: 23:59 mg total) Medica l tablet 00 :00 by mouth Center every 6 (six) hours as needed for Pain for up to 5 days. risperiDONE Yes TAKE [address] [facility] (RisperDAL) 5-29 TABLET BY [place] es 1 MG tablet 00:00: MOUTH AT [place] dichi 00 BEDTIME Center FOR 1 WEEK, THEN TAKE 1 TABLET TWICE A DAY FOR MOOD STABILITY risperiDONE Yes TAKE [address] [facility] (RisperDAL) 5-29 TABLET BY [place] es 1 MG tablet 00:00: MOUTH AT [place] [address] BEDTIME Center FOR 1 WEEK, THEN TAKE 1 TABLET TWICE A DAY FOR MOOD STABILITY risperiDONE Yes TAKE [address] [facility] (RisperDAL) 5-29 TABLET BY [place] es 1 MG tablet 00:00: MOUTH AT [facility] 00 BEDTIME Center FOR 1 WEEK, THEN TAKE 1 TABLET TWICE A DAY FOR MOOD STABILITY busPIRone Yes 10mg Q.5D Take [address] (BUSPAR) 10 5-18 by mouth 2 [place] k[place] MG tablet 00:00: (two) [facility] 00 times [place] daily. busPIRone Yes 10mg Q.5D Take [address] (BUSPAR) 10 5-18 by mouth 2 [place] kes MG tablet 00:00: ([facility]) [facility] 00 times [place] daily. busPIRone Yes 10mg Q.5D Take [address] (BUSPAR) 10 5-18 by mouth 2 [place]aso kes MG tablet 00:00: ([facility]) [facility] 00 times [place] daily. ARIPiprazol Yes 10mg QD Take [address] [facility] (ABILIFY) 3-22 by mouth Luke s 10 MG 00:00: daily. Medical tablet 00 [place] ARIPiprazol Yes 10mg QD Take [address] [facility] (ABILIFY) 3-22 by mouth Luke s 10 MG 00:00: daily. Medical tablet 00 [place] ARIPiprazol Yes 10mg QD Take [address] [facility] (ABILIFY) 3-22 by mouth Luke s 10 MG 00:00: daily. Medical tablet 00 [place] escitalopra Yes 10mg Take 10 mg Univers [...] [place] tablet 00 bedtime. Medical Branch lithium 2020-0 Yes 300mg Take 300 Unive rs carbonate 2-20 mg by ity of 300 mg 00:00: mouth 2 [place] tablet 00 (two) Medical times Branch daily. escitalopra 2020-0 Yes 10mg Take 10 mg Univers m oxalate 2-20 by mouth ity of 10 mg 00:00: at [place] tablet 00 bedtime. Medical Branch lithium 2020-0 Yes 300mg Take 300 Unive rs carbonate 2-20 mg by ity of 300 mg 00:00: mouth 2 [place] tablet 00 (two) Medical times Branch daily. escitalopra 2020-0 Yes 10mg Take 10 mg Univers m oxalate 2-20 by mouth ity of 10 mg 00:00: at [place] tablet 00 bedtime. Medical Branch lithium 2020-0 Yes 300mg Take 300 Unive rs carbonate 2-20 mg by ity of 300 mg 00:00: mouth 2 [place] tablet 00 (two) Medical times Branch daily. escitalopra 2020-0 Yes 10mg Take 10 mg Univers m oxalate 2-20 by mouth ity of 10 mg 00:00: at [place] tablet 00 bedtime. Medical Branch lithium 2020-0 Yes 300mg Take 300 Unive rs carbonate 2-20 mg by ity of 300 mg 00:00: mouth 2 [place] tablet 00 (two) Medical times Branch daily. escitalopra 2020-0 Yes 10mg Take 10 mg Univers m oxalate 2-20 by mouth ity of 10 mg 00:00: at [place] tablet 00 bedtime. Medical Branch lithium 2020-0 Yes 300mg Take 300 Unive rs carbonate 2-20 mg by ity of 300 mg 00:00: mouth 2 [place] tablet 00 (two) Medical times Branch daily. escitalopra 2020-0 Yes 10mg Take 10 mg Univers m oxalate 2-20 by mouth ity of 10 mg 00:00: at [place] tablet 00 bedtime. Medical Branch lithium 2020-0 Yes 300mg Take 300 Unive rs carbonate [...] 00 :00 Medical Branch omeprazole 2016-10- No [id number] 40mg Take 1 U nivers 40 mg 12-09 capsule by ity of capsule 00:00: 00:00 mouth [place] 00 :00 daily. Medical Branch omeprazole 2016-10- No [id number] 40mg Take 1 U nivers 40 mg 12-09 capsule by ity of capsule 00:00: 00:00 mouth [place] 00 :00 daily. Medical Branch buPROPion 2016-10- No [id number] TAKE 1 Un sara XL 300 mg 11-18 TABLET BY ity of 24 hr 00:00: 00:00 MOUTH [place] tablet 00 :00 EVERY Medical MORNING [place] hydrOXYzine 2016-10- No [id number] TAKE 1 Univers 100 mg 11-18 TABLET BY ity of capsule 00:00: 00:00 MOUTH [place] 00 :00 EVERY Medical EVENING AT [place] BEDTIME hydrOXYzine 2016-10- No [id number] TAKE 1 Univers 50 mg 11-18 TABLET BY ity of capsule 00:00: 00:00 MOUTH [place] 00 :00 EVERY Medical MORNING AT [place] 8AM AND AGAIN AT NOON naltrexone 2016-10- No [id number] TAKE 1 U nivers 50 mg 11-18 TABLET BY ity of tablet 00:00: 00:00 MOUTH [place] 00 :00 EVERY Medical EVENING AT [place] BEDTIME buPROPion 2016-10- No [id number] TAKE 1 Un sara XL 300 mg 11-18 TABLET BY ity of 24 hr 00:00: 00:00 MOUTH [place] tablet 00 :00 EVERY Medical MORNING [place] hydrOXYzine 2016-10- No [id number] TAKE 1 Univers 100 mg 11-18 TABLET BY ity of capsule 00:00: 00:00 MOUTH [place] 00 :00 EVERY Medical EVENING AT Branch BEDTIME hydrOXYzine 2016-10- No [id number] TAKE 1 Univers 50 mg 11-18 TABLET BY ity of capsule 00:00: 00:00 MOUTH [place] 00 :00 EVERY Medical MORNING AT [place] 8AM AND AGAIN AT NOON naltrexone 2016-10- No [id number] TAKE 1 U nivers 50 mg 11-18 TABLET BY ity of tablet 00:00: 00:00 MOUTH [place] 00 :00 EVERY Medical EVENING AT [place] BEDTIME Immunizations Ordered Immunization Filled Immunization Date Status [...] y of Vaccine Quad Nasal 00:00:00 [facility] Influenza Virus 2015-08-24 Completed Universit y of Vaccine Quad Nasal 00:00:00 [facility] Influenza Virus 2015-08-24 Completed Universit y of Vaccine Quad Nasal 00:00:00 [facility] Influenza Virus 2015-08-24 Completed Universit y of Vaccine Quad Nasal 00:00:00 [facility] Influenza Virus 2015-08-24 Completed Universit y of Vaccine Quad Nasal 00:00:00 [facility] Influenza Virus 2015-08-24 Completed Universit y of Vaccine Quad Nasal 00:00:00 [facility] Influenza Virus 2015-08-24 Completed Universit y of Vaccine Quad Nasal 00:00:00 [facility] HEPATITIS A 2006-01-14 Completed University of 00:00:00 [facility] HEPATITIS A 2006-01-14 Completed University of 00:00:00 [facility] HEPATITIS A 2006-01-14 Completed University of 00:00:00 [facility] HEPATITIS A 2006-01-14 Completed University of 00:00:00 [facility] HEPATITIS A 2006-01-14 Completed University of 00:00:00 [facility] HEPATITIS A 2006-01-14 Completed University of 00:00:00 [facility] HEPATITIS A 2006-01-14 Completed University of 00:00:00 [facility] Vital Signs Vital Name Observation Time Observation Value Comments Source HEIGHT 2022-03-22 03:45:00 180.3 cm WEIGHT 2022-03-22 03:45:00 107.956 kg HEIGHT 2022-03-22 03:45:00 180.3 cm WEIGHT 2022-03-22 03:45:00 107.956 kg HEIGHT 2022-03-22 03:45:00 180.3 cm WEIGHT 2022-03-22 03:45:00 107.956 kg Systolic blood 2021-05-27 07:34:00 124 mm[Hg] Univer sity of pressure [facility] Diastolic blood 2021-05-27 07:34:00 73 mm[Hg] Unive rsity of pressure [facility] Heart rate 2021-05-27 07:34:00 79 /min [facility] Body temperature 2021-05-27 07:34:00 36.56 [facility] Res[facility] rate 2021-05-27 07:34:00 20 /min [facility] Body weight 2021-05-27 07:34:00 128.368 kg [facility] BMI 2021-05-27 07:34:00 39.47 kg/m2 [facility] Oxygen saturation in 2021-05-27 07:34:00 100 /min [facility] Arterial blood by [facility] Pulse oximetry Branch Systolic blood 2021-05-19 01:00:00 [...] 96 /min University of Arterial blood by [facility] Pulse oximetry Branch Systolic blood 2020-12-10 20:46:00 [...] weight 2020-12-10 20:46:00 128.368 kg [facility] [place] [facility] BMI 2020-12-10 20:46:00 39.47 kg/m2 [facility] [place] [facility] Systolic blood 2020-12-10 20:46:00 112 mm[Hg] [...] weight 2020-12-10 20:46:00 128.368 kg [facility] [place] [facility] BMI 2020-12-10 20:46:00 39.47 kg/m2 Universi [facility] Systolic blood 2022-03-22 05:20:00 115 mm[Hg] [facility] pressure [facility] Diastolic blood 2022-03-22 05:20:00 66 mm[Hg] [facility] Heart rate 2022-03-22 05:20:00 85 /min [facility] Body temperature 2022-03-22 05:20:00 36.94 Bridget [facility] Respiratory rate 2022-03-22 05:20:00 18 /min [facility] Oxygen saturation in 2022-03-22 05:20:00 99 /min [facility] Arterial blood by Medical Ce nter Pulse oximetry Body weight 2022-03-22 03:45:00 107.956 kg [facility] BMI 2022-03-22 03:45:00 33.19 kg/m2 [facility] Body height 2022-03-22 03:45:00 180.3 cm [facility] Procedures Procedure Date / Time Performed Performing Clinician Sourc e XR ANKLE 3 VIEWS 2022-03-22 04:35:00 Louann Vásquez [facility] NOTICE OF PRIVACY 2021-05-27 07:28:30 Doctor Unassigned, No Univ [facility] PRACTICES Name [facility] CONSENT/REFUSAL FOR 2021-05-27 07:28:11 [facility]igned, [facility] AND Name [facility] TREATMENT RI RESUP NPTERF WND 2021-05-19 02:04:00 Alexia Ramey [facility] BODY 2.6-7.5 CM Medical Branch Plan of Care Planned Activity Planned Date Details Comments Source Future Scheduled 2023-06-[address] [facility] Test 00:00:00 (Season Ended) [code Medical Center = INFLUENZA VACCINE (Season Ended)] Future Scheduled 2023-03-[address] [facility] Test 00:00:00 Counseling and Medical Cente r Screening (12+) [code = Tobacco Cessation Counseling and Screening (12+)] Future Scheduled 2023-03-[address] [facility] Test 00:00:00 Counseling and Medical Cente r Screening (12+) [code = Tobacco Cessation Counseling and Screening (12+)] Future Scheduled 2022-10-[address] [facility] Test 00:00:00 (12+) [code = Medical Center DEPRESSION SCREENING (12+)] Future Scheduled 2022-10-[address] [facility] Test 00:00:00 (12+) [code = Medical Center DEPRESSION SCREENING (12+)] Future Scheduled 2022-06-[address] [facility] Test 00:00:00 (#1) [code = Medical Center INFLUENZA VACCINE (#1)] Future Scheduled 2022-06-[address] [facility] Test 00:00:00 (#1) [code = Medical Center INFLUENZA VACCINE (#1)] Future Scheduled 2021-10-[address] [facility] Test 00:00:00 (12+) [code = Medical Center DEPRESSION SCREENING (12+)] Future Scheduled [address] [facility] Test 00:00:00 (procedure) [code = [facility] [id number]] Future Scheduled [address] [facility] Test 00:00:00 (procedure) [code = [facility] [id number]] Future Scheduled [address] [facility] Test 00:00:00 (procedure) [code = [facility] [id number]] Future Scheduled 2019 DTAP/TDAP/TD VACCINES [facility] Test 00:00:00 (1 - Tdap) [code = Medical C enter DTAP/TDAP/TD VACCINES (1 - Tdap)] Future Scheduled 2019 DTAP/TDAP/TD VACCINES [facility] Test 00:00:00 (1 - Tdap) [code = Medical C enter DTAP/TDAP/TD VACCINES (1 - Tdap)] Future Scheduled 2019 DTAP/TDAP/TD VACCINES [facility] Test 00:00:00 (1 - Tdap) [code = Medical C enter DTAP/TDAP/TD VACCINES (1 - Tdap)] Future Scheduled 2018 HEPATITIS C [facility]CRE[facility]ING [facility] Test 00:00:00 [code = HEPATITIS C Medical Center SCREENING] Future Scheduled 2018 HEPATITIS C [facility]CRE[facility]ING [facility] Test 00:00:00 [code = HEPATITIS C Medical Center SCREENING] Future Scheduled 2018 HEPATITIS C [facility]CRE[facility]ING [facility] Test 00:00:00 [code = HEPATITIS C Medical Center SCREENING] Future Scheduled 2000 COVID-19 VACCINE (#1) [facility] Test 00:00:00 [code = COVID-[address] VACCINE (#1)] Future Scheduled 2000 COVID-19 VACCINE (#1) [facility] Test 00:00:00 [code = COVID-[address] VACCINE (#1)] Future Scheduled 2000 COVID-19 VACCINE (#1) [facility] Test 00:00:00 [code = COVID-[address] VACCINE (#1)] Encounters Start End Encounter Admission Attending Care Care Encounter Source Date/Time Date/Time Type Type Clinicians Facility Department ID 2021-08-12 Emergency [facility] [id number] Univers 15:40:37 ity [facility] 2021-08-12 Emergency [facility] [id number] Univers 13:52:37 [facility] 2022-07-11 2022-07-11 Outpatient SFA SFA [id number] Leonidas 13:10:24 13:10:24 0930 F El 2022-03-22 2022-03-22 Emergency Vásquez [facility] [id number] 03:51:00 05:22:00 [facility] 2022-03-22 2022-03-22 Emergency ER [facility] Emergency [id number] [facility] 03:51:00 05:22:00 2022-03-22 2022-03-22 Emergency Vásquez [facility] [id number] 03:51:00 05:22:00 [facility] 2022-03-22 2022-03-22 Travel [facility] [id number] [facility] 00:00:00 [facility] 2022-03-22 2022-03-22 Travel [facility] [id number] [facility] 00:[facility] 00:00:00 [facility] 2021-05-27 2021-05-27 Emergency [facility] [id number] Univers 02:37:00 04:07:00 Alexia Zamora [id number] ity of [place] [id number] [facility] [phone] [place] [id number] [place] 2021-05-27 2021-05-27 Orders Doctor DK [id number] Univers 00:00:00 00:00:00 Only Unassigned, ANDRÉS [id number] ity of [facility] [id number] Theodore as [phone] [place] [address] Branch 2021-05-18 2021-05-18 Emergency [facility] [id number] Univers 19:21:00 20:53:00 Alexia Zamora [id number] ity of [place] [id number] [facility] [phone] [address] 2020-12-12 2020-12-12 Telephone [facility] [id number] Univers 00:00:00 00:00:00 [facility] [id number] it y of [place] [id number] Theodore as Professio [phone] Nm dical [address] Office [address] 2020-12-12 2020-12-12 Telephone [facility] [id number] 00:00:00 00:00:00 [facility] [id number] [place] [id number] Professio [phone] [place] [address] [address] 2020-12-10 2020-12-10 [facility], [facility] [id number] 15:06:40 15:26:40 Visit Fam [facility] I Health [id number] [place] [id number] Professio [phone] [place] [address] Office [address] One 2020-12-10 2020-12-10 [facility], Adc Fam Pob I [facility] [id number] Univers 15:06:40 15:26:40 Visit Benson Mathews [facility] [id number] ity of [place] [id number] Theodore as Professio [phone] Nm dic[address] Building One 2020-12-10 2020-12-10 Office William [facility] [id number] 14:36:00 15:06:00 Visit Benson [facility] [id number] [place] [id number] Professio [phone] [address] One 2020-12-10 2020-12-10 [facility] [id number] Univers 14:36:00 15:06:00 Visit Benson [facility] [id number] it y of [place] [id number] Theodore as Professio [phone] [address] One 2020-12-10 2020-12-10 Outpatient R WILLIAM [facility] [id number] Univers 14:30:00 14:30:00 BENSON [facility] Results Test Test Test Comments Results Result Source Description Time Comments RAD, ANKLE, MIN 2022-03- Reason for 3 VIEWS, RIGHT 11 exam:->ANKLE 04:35:00 PAINShould [facility] performed at CENTERName: Tri SILVA : bedside?->No 2000 Sex: M FINAL REPORT TECHNIQUE: Frontal, oblique, and lateral views of the right ankle. INDICATION: ANKLE PAIN. COMPARISON: None. IMPRESSION:Moderate soft tissue swelling at the lateral malleolus. No acute fracture or dislocation. Joint spaces are preserved. Signed: Benson Ruth MDReport Verified Date/Time: 03/22/2022 04:35:57 Laceration 2021-05- Alexia Ramey MD ? Un iversity of Repair 08 ? 05/18/2021 ?9:04 [facility] dichi 02:04:00 PMLaceration Branch RepairPerformed by: Alexia Ramey MDAuthorized by: Alexia Ramey MD Consent: ?Consent obtained: [...]
--- NOTE | 2023-03-04 21:08 | ER ---
Nurse's Notes [facility] Name: Luis Fernando Silva Age: 22 yrs Sex: Male : 2000 Arrival Date: 03/04/2023 Time: 20:38 Bed 9 Private MD: Diagnosis: Local infection of the skin and subcutaneous tissue, unspecified Presentation: 03/04 20:58 Chief complaint: Patient states: I have been stretching my ears and I had a blow out kd3 and now my ear lobes are infected. I think my right one is spreading to my jaw because it hurts. Coronavirus screen: Vaccine status: Patient reports being unvaccinated. Ebola Screen: No symptoms or risks identified at this time. Initial Sepsis Screen: Does the patient meet any 2 criteria? No. Patient's initial sepsis screen is negative. Does the patient have a suspected source of infection? No. Patient's initial sepsis screen is negative. Risk Assessment: Do you want to hurt yourself or someone else? Patient reports no desire to harm self or others. Onset of symptoms was March 04, 2023. 20:58 Method Of Arrival: Ambulatory kd3 20:58 Acuity: LALIT 4 kd3 Triage Assessment: 21:01 General: Appears uncomfortable, Behavior is calm, cooperative. Pain: Complains of pain kd3 in right ear lobe. Neuro: Level of Consciousness is awake, alert, obeys commands, Oriented to person, place, time, situation. Historical: - Allergies: 21:01 No Known Allergies; kd3 - PMHx: 21:01 Anxiety; Depression; PTSD; kd3 - Immunization history:: Adult Immunizations up to date. - Social history:: Smoking status: Reported history of juuling and/or vaping. Screenin:09 [facility] Fall Risk Assessment (Adult) History of falling in the last 3 months, mb9 including since admission No falls in past 3 months (0 pts) Confusion or Disorientation No (0 pts) Intoxicated or Sedated No (0 pts) Impaired Gait No (0 pts) Mobility Assist Device Used No (0 pt) Altered Elimination No (0 pt) Score/Fall Risk Level 0 - 2 = Low Risk Oriented to surroundings, Maintained a safe environment, Educated pt \T\ family on fall prevention, incl call for assistance when getting out of bed. Abuse screen: Denies threats or abuse. Nutritional screening: No deficits noted. Tuberculosis screening: No symptoms or risk factors identified. Assessment: 21:08 Reassessment: No changes from previously documented assessment. Patient and/or family mb9 updated on plan of care and expected duration. Pain level reassessed. Patient is alert, oriented x 3, equal unlabored respirations, skin warm/dry/pink. Vital Signs: 20:58 BP 112 / 70; Pulse 80; Resp 16; Temp 98.5(O); Pulse Ox 100% on R/A; Weight 105.23 kg; kd3 Height 5 ft. 11 in. ; 20:58 Body Mass Index 32.36 (105.23 kg, 180.34 cm) kd3 ED Course: 20:54 Patient arrived in ED. ag3 20:57 Chela Vásquez FNP-C [facility] kb 20:57 Yaa Osborne MD is Attending Physician. kb 21:01 Triage completed. kd3 21:01 Arm band placed on right wrist. kd3 21:06 Krystal Steele, ARUN is Primary Nurse. mb9 21:08 Ana Nath MD is Referral Physician. kb 21:09 Placed in gown. Bed in low position. Call light in reach. Side rails up X 1. Client mb9 placed on continuous cardiac and pulse oximetry monitoring. NIBP monitoring applied. 21:09 No provider procedures requiring assistance completed. Patient did not have IV access mb9 during this emergency room visit. Administered Medications: No medications were administered Medication: 21:09 VIS not applicable for this client. mb9 Outcome: 21:08 Discharge ordered by . kb 21:09 Discharged to home ambulatory. mb9 21:09 Condition: stable 21:09 Discharge instructions given to patient, Instructed on discharge instructions, follow up and referral plans. Demonstrated understanding of instructions, follow-up care, medications, Prescriptions given X 2. 21:10 Patient left the ED. mb9 Signatures: Chela Vásquez FNP-C FNP-Ckb Gomez, Alice 3 Debra Barajas RN RN 3 Krystal Steele RN RN mb9
--- NOTE | 2023-03-04 21:09 | EDPHYS ---
Physician Documentation [facility] Name: Luis Fernando Silva Age: 22 yrs Sex: Male : 2000 Arrival Date: 03/04/2023 Time: 20:38 Bed 9 Private MD: ED Physician Yaa Osborne HPI: 03/04 21:06 This 22 yrs old Male presents to ER via Ambulatory with complaints of piercing kb infection. 21:06 The patient presents with drainage, swelling. The complaints affect the left ear lobe kb and right ear lobe. Onset: The symptoms/episode began/occurred last week. Modifying factors: The symptoms are alleviated by nothing, the symptoms are aggravated by nothing. Associated signs and symptoms: The patient has no apparent associated signs or symptoms. Severity of symptoms: At their worst the symptoms were moderate in the emergency department the symptoms are unchanged. The patient has not experienced similar symptoms in the past. The patient has not recently seen a physician. Pt reports he stretched the piercings in bilateral ear lobes and the right one ripped. States both lobes have been swelling and getting red for the last week, but he noticed pus coming out of right lobe today so he came in. Historical: - Allergies: 21:01 No Known Allergies; kd3 - PMHx: 21:01 Anxiety; Depression; PTSD; kd3 - Immunization history:: Adult Immunizations up to date. - Social history:: Smoking status: Reported history of juuling and/or vaping. ROS: 21:05 Constitutional: Negative for fever, chills, and weight loss. kb 21:05 ENT: Positive for ear pain. 21:05 All other systems are negative. Exam: 21:05 Constitutional: This is a well developed, well nourished patient who is awake, alert, kb and in no acute distress. Head/Face: Normocephalic, atraumatic. Respiratory: Respirations even and unlabored. No increased work of breathing. Talking in full sentences Skin: Warm, dry with normal turgor. Normal color. MS/ Extremity: Pulses equal, no cyanosis. Neurovascular intact. Full, normal range of motion. Neuro: Awake and alert, GCS 15, oriented to person, place, time, and situation. Moves all extremities. Normal gait. 21:05 ENT: External ear(s): cellulitis, that is moderate, of the right ear lobe and left ear lobe, Dried Blood. erythema, swelling. Vital Signs: 20:58 BP 112 / 70; Pulse 80; Resp 16; Temp 98.5(O); Pulse Ox 100% on R/A; Weight 105.23 kg; kd3 Height 5 ft. 11 in. ; 20:58 Body Mass Index 32.36 (105.23 kg, 180.34 cm) kd3 MDM: 20:57 Patient medically screened. kb 21:05 Differential diagnosis: cellulitis, local infection of skin, abscess. Data reviewed: kb vital signs, nurses notes. Counseling: I had a detailed discussion with the patient and/or guardian regarding: the historical points, exam findings, and any diagnostic results supporting the discharge/admit diagnosis, the need for outpatient follow up, an ENT specialist, to return to the emergency department if symptoms worsen or persist or if there are any questions or concerns that arise at home. Administered Medications: No medications were administered Disposition Summary: 03/04/23 21:08 Discharge Ordered Location: Home kb Condition: Stable kb Diagnosis - Local infection of the skin and subcutaneous tissue, unspecified kb Followup: kb - With: Emergency Department - When: As needed - Reason: Worsening of condition Followup: kb - With: Private Physician - When: 2 - 3 days - Reason: Recheck today's complaints, Continuance of care, Re-evaluation by your physician Followup: kb - With: Ana Nath MD - When: 2 - 3 days - Reason: Recheck today's complaints Discharge Instructions: - Discharge Summary Sheet kb - Wound Infection, [id number] kb Forms: - Medication Reconciliation Form kb - Thank You Letter kb - Antibiotic Education kb - Prescription Opioid Use kb Prescriptions: - Cephalexin 500 mg Oral Capsule - take 1 capsule by ORAL route every 8 hours for 10 days; 30 capsule; Refills: 0, kb Product Selection Permitted - Bactrim DS 800-160 mg Oral Tablet - take 1 tablet by ORAL route every 12 hours for 10 days; 20 tablet; Refills: 0, kb Product Selection Permitted Signatures: Chela Vásquez, EULALIO VILLALOBOS-Debra Diaz, RN RN kd3
[2023-03-04 21:14] VITALS: BP 112/70; TEMP 98.5; O2SAT 100
== END 2023-03-04 21:10 | disposition home or self-care (01) ==
LOC: ER 20:38
DX: H60.13 Cellulitis of external ear, bilateral (principal)